=== PATIENT | female | born 1940 | race Caucasian/White ===

== ENCOUNTER 2020-01-07 12:12 | Outpatient (REF) | payer MEDICARE, SELFPAY | END 2020-01-07 12:13 | disposition home or self-care (01) | LOC: HO.LAB 12:12 | PROVIDERS: PCP Internal Medicine; Visit Provider Internal Medicine | DX: Z20.828 Contact with and (suspected) exposure to other viral communicable diseases (principal) | CPT/HCPCS: 87635 ==

== ENCOUNTER 2020-02-17 06:47 | Inpatient (IN) | payer MEDICARE, SELFPAY ==
[2020-02-17] VITALS (10 sets, daily range): BP systolic 118–185; BP diastolic 57–94; PULSE 66–110; RESP 16–18; TEMP 36.3–36.6; O2SAT 94–99; BMI 42.4
--- NOTE | 2020-02-17 06:56 | ED_ITS ---
HPI - General Adult General Chief complaint: Back Pain/Injury Stated complaint: CHEST PAIN Time Seen by Provider: 02/17/20 06:56 Source: patient Mode of arrival: ambulatory Limitations: no limitations History of Present Illness HPI narrative: Patient with positive COVID on January 06, lost taste and smell. Patient had chest and back pain worse with lying. Patient has had pain for 3 days, the pain is intermittent, had heart burn. Patient feels the pain more when she lies down Onset (ago): day(s) Radiation: back Severity: mild Quality: burning Pain Consistency: intermittent Relieving factors: other (sitting up) Related Data Allergies Allergy/AdvReac Type Severity Reaction Status Date / Time cephalexin [From Keflex] AdvReac Mild diarrhea Unverified 02/17/20 07:06 codeine AdvReac Mild gastric Unverified 02/17/20 07:06 distress Review of Systems Constitutional: Constitutional: Reports no additional constitutional complaints Eyes: Eyes: Reports no additional eye complaints ENT: Denies dizziness Cardiovascular: Cardiovascular: Reports no additional cardiovascular complaints Respiratory: Respiratory: Reports as per HPI Gastrointestinal: Gastrointestinal: Reports no additional gastrointestinal complaints Genitourinary: Genitourinary: Reports no additional female genitourinary complaints Musculoskeletal: Musculoskeletal: Reports no additional musculoskeletal complaints Integumentary/Breasts: Skin/Breast: Denies rash Neurologic: Reports system reviewed and no additional complaints, except as documented, Denies dizziness and Denies Sensory deficit (Neuro) Psychiatric: Psychiatric: Denies anxiety PMF Past Medical History Medical History Hypothyroid Melanoma Social History Social History Alcohol intake: never Smoking Status: Former smoker Smoked in Last 30 Days: No Use of substances other than those prescribed or required for medical reasons: No Advance Directives: Yes Advance Directives Information Provided: No Advance Directives on File: No Physical Exam Vital Signs: Vital Signs: Last Vital Signs Temp 97.8 F 02/17/20 06:59 Pulse 110 H 02/17/20 06:59 Resp 18 02/17/20 06:59 BP 185/94 H 02/17/20 06:59 Pulse Ox 98 02/17/20 06:59 Body Mass Index 42.4 Const: Other: no distress Nutritional Appearance: obese Orientation/consciousness: oriented to person and patient oriented x3 Limitations: no limitations HENMT: Head: Yes normal to inspection Ears: external ears normal General nose exam: Normal external nose present Mouth: Normal oral and palatal mucosa present and oropharynx normal Throat: Yes posterior oropharynx normal Eyes: General: appearance normal, both eyes and all related structures Neck: Other: supple Neck: Yes normal visual inspection Chest: Chest palpation & inspection: normal inspection of the chest Resp: Auscultation: clear to auscultation bilaterally Cardio: Other: tachycardia Jugular venous distension: no JVD Rate: regular rate Rhythm: regular rhythm Heart sounds: S1 normal heart sound present and S2 normal heart sound present GI: Inspection: Yes normal to inspection Palpation (GI): Soft to palpation, nontender and No hepatosplenomegaly present Auscultation: normal bowel sounds : General: Yes no CVA tenderness Back/Spine/Pelvis: Back: no CVA tenderness Skin: General skin exam: no rashes or lesions noted Neuro: General: oriented to person and patient oriented x3 Cranial nerves: Yes CN's II-XII intact bilaterally Motor exam (neuro): 5/5 motor strength present throughout Sensory Exam: No Sensory deficit (Neuro) Extrem: General: Yes normal to inspection Psych: Appearance: grossly normal Course Course Course Narrative: patient is pain free Medical Decision Making [facility] Narrative Medical decision making narrative: Patient with intermittent chest discomfort going into the back, gave ASA and nitro, troponin is positive in this patient. Will admit for further cardiac work up Differential Diagnosis Differential Diagnosis: Cardiac, gall bladder, gastritis, pancreatitis Lab Data Result diagrams: 02/17/20 07:34 02/17/20 07:34 Labs: Lab Results 02/17/20 02/17/20 02/17/20 Range/Units 07:34 07:34 07:34 WBC 5.9 (4.8-10.8) X10*3/uL RBC 4.84 (4.20-5.50) X10*6/uL Hgb 13.9 (12.0-16.0) g/dl Hct 42.9 (37-47) % MCV 88.6 (80-98) fL MCH 28.7 (27.0-33.0) pg MCHC 32.4 (31.0-35.0) g/dl RDW 12.8 (11.0-16.0) % Plt Count 272 (160-400) X10*3/uL MPV 9.5 (9.4-12.3) fL Immature Gran % (Auto) 0.2 (0.0-0.4) % Neut % (Auto) 68.7 (45-73) % Lymph % (Auto) 19.3 L (20-40) % [place] % (Auto) 7.7 (2-11) % Eos % (Auto) 3.1 (0-4) % Baso % (Auto) 1.0 (0-2) % Lymph # (Auto) 1.1 L (1.2-4.9) X10*3/uL [place] # (Auto) 0.5 (0.1-1.2) X10*3/uL Eos # (Auto) 0.2 (0.0-0.4) X10*3/uL Baso # (Auto) 0.1 (0.0-0.2) X10*3/uL Abs Immat Gran (auto) 0.01 (0.00-0.03) X10*3/uL Absolute Neuts (auto) 4.0 (2.0-8.3) X10*3/uL Absolute Nucleated RBC 0.000 (0.0-0.012) X10*3/uL Nucleated RBC % (auto) 0.0 (0.0-0.2) /100WBC Sodium 139 (135-145) mmol/L Potassium 4.1 (3.3-5.1) mmol/l Chloride 101 (96-108) mmol/L Carbon Dioxide 28 (22-29) mmol/L Anion Gap 14 (12-20) BUN 9 (9-16) mg/dL Creatinine 0.77 (0.5-1.4) mg/dL Estim Creat Clear Calc 65.2 Estimated GFR > 60 Random Glucose 112 (60-115) mg/dL Calcium 9.6 (8.4-10.2) mg/dL Total Bilirubin 0.3 (0.0-1.0) mg/dL Direct Bilirubin 0.2 (0.0-0.5) mg/dL AST 21 (5-31) U/L ALT 16 (0-31) U/L Alkaline Phosphatase 77 (39-117) U/L Troponin I High Sens 172.7 H (<3.5-17.0) ng/L Total Protein 6.8 (6.5-8.0) g/dL Albumin 4.0 (3.5-5.0) g/dL Lipase 10 (8-78) U/L Critical Care Time Critical Care Time Critical Care Time: Yes Total Critical Care Time: 31 Attestation: I spent 31 minutes of critical care, with interventions, assessments, speaking to patient, consultants, and family. Discharge Plan Discharge Clinical Impression: Chest pain, Elevated troponin Patient Disposition: Admitted As Inpatient
--- NOTE | 2020-02-17 07:06 | ECG_ITS ---
Test Reason : EDMD Blood Pressure : / mmHG Vent. Rate : 080 BPM Atrial Rate : 080 BPM P-R Int : 192 ms QRS Dur : 088 ms QT Int : 380 ms P-R-T Axes : 023 -01 019 degrees QTc Int : 438 ms Normal sinus rhythm Normal ECG When compared with ECG of 08-DEC-2005 10:31, No significant change was found Referred By: Hasmukh Leal Electronically Signed By:ZAIN SONG MD
--- NOTE | 2020-02-17 07:06 | XR_ITS ---
EXAMINATION: XR CHEST CLINICAL INFORMATION: Chest pain. COMPARISON: Chest 09/22/2006 TECHNIQUE: Frontal view of the chest was obtained. FINDINGS: The lungs are expanded with patchy density right middle lobe, question atelectasis/infiltrate. Rest of lungs are expanded and clear. The heart size and pulmonary vascularity is normal. Mild degenerative arthritic changes seen in bilateral AC joints. XR/XR chest 1V IMPRESSION: Patchy density right middle lobe question infiltrate versus atelectasis, new since previous study.
[2020-02-17 07:38] LABS: MANUAL DIFF FLAG NO
[2020-02-17 07:41] LABS: Basophils Absolute Auto 0.1 X10*3/uL (0.0-0.2); Eosinophils Absolute Auto 0.2 X10*3/uL (0.0-0.4); Eosinophils Percent Auto 3.1 % (0-4); Hematocrit 42.9 % (37-47); Hemoglobin 13.9 g/dl (12.0-16.0); Imm Gran Abs Auto 0.01 X10*3/uL (0.00-0.03); Imm Gran Pct Auto 0.2 % (0.0-0.4); Lymphocytes Absolute Auto 1.1 X10*3/uL (1.2-4.9); Lymphocytes Percent Auto 19.3 % (20-40); Mean Corpuscular HGB Conc 32.4 g/dl (31.0-35.0); Mean Corpuscular Hemoglobin 28.7 pg (27.0-33.0); Mean Corpuscular Volume 88.6 fL (80-98); Mean Platelet Volume 9.5 fL (9.4-12.3); Monocytes Absolute Auto 0.5 X10*3/uL (0.1-1.2); Monocytes Percent Auto 7.7 % (2-11); Neutrophils Percent Auto 68.7 % (45-73); Platelet Count 272 X10*3/uL (160-400); Red Blood Count 4.84 X10*6/uL (4.20-5.50); Red Cell Distribution Width 12.8 % (11.0-16.0); White Blood Count 5.9 X10*3/uL (4.8-10.8)
[2020-02-17] MEDS: Magnesium Hydrox/Alum Hydrox 30 ML ORAL.SUSP PO (07:42)
[2020-02-17] MEDS: Pantoprazole Sodium 40 MG/10 ML VIAL IVPUSH (07:42)
[2020-02-17] MEDS: Aspirin 81 MG TAB.CHEW 162 MG PO (07:42)
--- NOTE | 2020-02-17 07:50 | PC.NURSE ---
iv established, blood labs obtained and sent, medicated per emar. pt appears to be sinus tach on tele; 95 bpm. nad, wctm.
[2020-02-17 08:04] LABS: Alanine Aminotransferase 16 U/L (0-31); Alkaline Phosphatase 77 U/L (39-117); Anion Gap 14 (12-20); Aspartate Amino Transferase 21 U/L (5-31); Bilirubin Direct 0.2 mg/dL (0.0-0.5); Bilirubin Total 0.3 mg/dL (0.0-1.0); Blood Urea Nitrogen 9 mg/dL (9-16); Calcium 9.6 mg/dL (8.4-10.2); Carbon Dioxide 28 mmol/L (22-29); Chloride 101 mmol/L (96-108); Creatinine Clr Calc Pharmacy 65.2; Estimated Glomerular Filt Rate > 60; Glucose Random 112 mg/dL (60-115); Lipase 10 U/L (8-78); Potassium 4.1 mmol/l (3.3-5.1); Sodium 139 mmol/L (135-145); Total Protein 6.8 g/dL (6.5-8.0)
[2020-02-17 08:13] LABS: Troponin-I High Sensitivity 172.7 ng/L (<3.5-17.0)
--- NOTE | 2020-02-17 08:21 | PC.NURSE ---
provider at bedside to review lab results, plan for inpt admission
[2020-02-17] MEDS: Nitroglycerin 2 % Oint 1 GM Packet 1 INCH TRANSDERMA (08:44)
--- NOTE | 2020-02-17 08:46 | PC.NURSE ---
medicated per emar, ambulating to bathroom w steady gait.
--- NOTE | 2020-02-17 08:59 | PC.NURSE ---
hospitalist at bedside for eval.
--- NOTE | 2020-02-17 09:49 | P.HPHOSP_ITS ---
History of Present Illness Date of Service: 02/17/20 Chief Complaint: chest pain 79 year female with hypothyroidism, no history of CAD, or diabetes. She comes with 2 to 3 days of intermittent chest pain that is vague in sort of epigastric area towards the side, at worst 8/10, worst lying back and in recliner. She has been taken tums with some relieve, she gets several episodes a day, she came in because of persitence of the pain. Review of Systems Review of Systems: Gen: no fever Resp: no sob, no cough CV: + chest, no GAUTHIER, no leg edema GI: No n/v, no abd pain Neuro: No confusion Yes all other systems are reviewed and are negative Neurologic: Reports Sensory deficit (Neuro) [facility] Medical History (Updated 02/17/20 @ 10:03 by John Chow MD) Hypothyroid Melanoma Functional capacity: independent ambulation Pertinent family history: There is family history of HTN, heart disease but no specific Surgical History (Updated 02/17/20 @ 10:02 by John Chow MD) H/O melanoma excision History of appendectomy Social History Household Members: Spouse Housing: House Do you presently have visiting nurse or other home services: No Alcohol intake: never Smoking Status: Former smoker Smoked in Last 30 Days: No Use of substances other than those prescribed or required for medical reasons: No Currently Displaying Signs/Symptoms of Drug Intoxication Withdrawal: No Have you been hit, kicked, punched, or otherwise hurt by someone within the past year? If so, by whom?: No Do you feel safe in your current relationship?: Yes Is there a partner from a previous relationship who is making you feel unsafe now?: No Advance Directives: Yes Advance Directives Information Provided: No Advance Directives on File: No Advance Directives Date on File: 02/17/20 Do you have thoughts of harming others: None Do you have a plan to hurt others: No Plan Recently lost weight without trying: No service: No Current occupational status: unemployed Meds Allergies Allergy/AdvReac Type Severity Reaction Status Date / Time ciprofloxacin AdvReac Mild Diarrhea Verified 02/17/20 11:40 codeine AdvReac Mild gastric Verified 02/17/20 11:40 distress Home Medications Medication Instructions Recorded Confirmed Type cholecalciferol (vitamin D3) 0 mcg PO DAILY 02/17/20 02/17/20 History [Vitamin D3] levothyroxine 100 mcg PO DAILY@0630 02/17/20 02/17/20 History multivitamin 1 tab PO DAILY 02/17/20 02/17/20 History Physical Exam Vital Signs and Narrative: Vital Signs: Last Vital Signs Temp 97.8 F 02/17/20 06:59 Pulse 86 02/17/20 09:00 Resp 18 02/17/20 06:59 BP 185/94 H 02/17/20 06:59 Pulse Ox 98 02/17/20 06:59 Body Mass Index 42.4 Constitutional Awake and Alert, No apparent distress Neck Supple, No lymphadenopathy Cardiovascular RRR, No M/R/G, S1 S2, No S3 S4, No pedal edema Respiratory Lungs clear, No respiratory distress Gastrointestinal Non tender, Non-distended Skin No rash Neurological Alert & oriented x3 Psychological Appropriate affect Neuro: Sensory Exam: Sensory deficit (Neuro) Results Labs CBC and Chem 7: 02/17/20 07:34 02/17/20 07:34 Labs: Laboratory Results - last 24 hr 02/17/20 02/17/20 02/17/20 07:34 07:34 07:34 MCV 88.6 MCH 28.7 MCHC 32.4 RDW 12.8 Plt Count 272 MPV 9.5 Immature Gran % (Auto) 0.2 Neut % (Auto) 68.7 Lymph % (Auto) 19.3 L [place] % (Auto) 7.7 Eos % (Auto) 3.1 Baso % (Auto) 1.0 Lymph # (Auto) 1.1 L [place] # (Auto) 0.5 Eos # (Auto) 0.2 Baso # (Auto) 0.1 Abs Immat Gran (auto) 0.01 Absolute Neuts (auto) 4.0 Absolute Nucleated RBC 0.000 Nucleated RBC % (auto) 0.0 Anion Gap 14 Estim Creat Clear Calc 65.2 Estimated GFR > 60 Random Glucose 112 Calcium 9.6 Total Bilirubin 0.3 Direct Bilirubin 0.2 AST 21 ALT 16 Alkaline Phosphatase 77 Troponin I High Sens 172.7 H Total Protein 6.8 Albumin 4.0 Lipase 10 Imaging Radiologist's Impressions: Impressions Chest X-Ray 02/17/20 07:06 IMPRESSION: Patchy density right middle lobe question infiltrate versus atelectasis, new since previous study. Assessment and Plan (1) Chest pain: Qualifiers: Chest pain type: precordial pain Qualified Code(s): R07.2 - Precordial pain Status: Acute (2) Elevated troponin: Status: Acute (3) Hypothyroid: Status: Acute (4) HTN (hypertension): Status: Acute 79/F with history of hypothyroidism and likely untreated HTN who presents with chest pain elevated troponin and essentially normal ECG 1. Chest pain, non anginal pattern, normal ECG, however mild rise in trop -Serial troponin an repeat ECG, treat high BP, baby aspirin, check lipids 2. Elevated BP--likely untreated HTN -Start Norvasc 2.5 daily 3. Hypothyroidism--continue Levothyroxine 4.
[2020-02-17 10:00] LABS: COVID-19 Test Negative (Negative)
--- NOTE | 2020-02-17 10:56 | PC.NURSE ---
report given to [facility]ie jara
[2020-02-17] MEDS: Heparin Sodium,Porcine 5,000 UNIT/ML VIAL 5000 UNIT SUBCUT ×2 (12:02→21:07)
[2020-02-17] MEDS: Levothyroxine Sodium 100 MCG TABLET PO (12:03)
--- NOTE | 2020-02-17 12:30 | P.CONCA_ITS ---
History of Present Illness History of Present Illness Date of Consult: February 17, 2020 Requesting physician: Jhon Chow Consult reason: chest pain Chief complaint: Elevated troponin, chest pain Narrative: Pleasant 79-year-old female with background history of hypertension and hypothyroidism who is presenting with off and on chest discomfort ongoing since Monday. She said that she had COVID-19 last month and had some indigestion like feeling at that time too. She said she recovered from that and now over the last 3 days she has been experiencing indigestion like feeling with the epigastric discomfort that radiates to her back whenever lies down. This only happens when she is flat in bed but as she sits up and walks around this discomfort goes away. With walking she has no chest discomfort or abdominal discomfort. With these symptoms she presented to [facility]. Her blood pressure was elevated. Her initial troponin level was 172. she is saying she is feeling fine sitting upright now. Of note also her lipase level was checked which was normal. Review of Systems Review of Systems: Upper abdominal discomfort Yes all other systems are reviewed and are negative ENT: Denies dizziness Neurologic: Reports system reviewed and no additional complaints, except as documented and Denies dizziness PMFSH Past Medical History Medical History (Updated 02/17/20 @ 10:03 by John Chow MD) Hypothyroid Melanoma Functional capacity: independent ambulation Surgical History Surgical History (Updated 02/17/20 @ 10:02 by John Chow MD) H/O melanoma excision History of appendectomy Social History Social History Alcohol intake: never Smoking Status: Former smoker Smoked in Last 30 Days: No Use of substances other than those prescribed or required for medical reasons: No Advance Directives: Yes Advance Directives Information Provided: No Advance Directives on File: No Meds Allergies Allergy/AdvReac Type Severity Reaction Status Date / Time ciprofloxacin AdvReac Mild Diarrhea Verified 02/17/20 11:40 codeine AdvReac Mild gastric Verified 02/17/20 11:40 distress Home Medications Medication Instructions Recorded Confirmed Type cholecalciferol (vitamin D3) 0 mcg PO DAILY 02/17/20 History [Vitamin D3] levothyroxine 100 mcg PO DAILY@0630 02/17/20 02/17/20 History multivitamin 1 tab PO DAILY 02/17/20 02/17/20 History Physical Exam Vital Signs: Vital Signs: Last Vital Signs Temp 97.4 F 02/17/20 11:45 Pulse 90 02/17/20 11:45 Resp 18 02/17/20 11:45 BP 139/78 02/17/20 11:55 Pulse Ox 97 02/17/20 11:45 Body Mass Index 42.4 GENERAL APPEARANCE: in no acute distress, well developed, well nourished. HEENT: unremarkable. HEAD: normocephalic, atraumatic. NECK/THYROID: no carotid bruit, no jugular venous distention. SKIN: no suspicious lesions, warm and dry. HEART: no murmurs, regular rate and rhythm, S1, S2 normal. LUNGS: clear to auscultation bilaterally. ABDOMEN: normal, bowel sounds present, soft, nontender, nondistended. EXTREMITIES: no clubbing, cyanosis, or edema. PERIPHERAL PULSES: equal. NEUROLOGIC: nonfocal, alert and oriented. PSYCH: mood/affect full range. Results Labs and Meds Result diagrams: 02/17/20 07:34 02/17/20 07:34 Lab results: Laboratory Results - last 24 hr 02/17/20 02/17/20 02/17/20 07:34 07:34 07:34 WBC 5.9 RBC 4.84 Hgb 13.9 Hct 42.9 MCV 88.6 MCH 28.7 MCHC 32.4 RDW 12.8 Plt Count 272 MPV 9.5 Immature Gran % (Auto) 0.2 Neut % (Auto) 68.7 Lymph % (Auto) 19.3 L [place] % (Auto) 7.7 Eos % (Auto) 3.1 Baso % (Auto) 1.0 Lymph # (Auto) 1.1 L [place] # (Auto) 0.5 Eos # (Auto) 0.2 Baso # (Auto) 0.1 Abs Immat Gran (auto) 0.01 Absolute Neuts (auto) 4.0 Absolute Nucleated RBC 0.000 Nucleated RBC % (auto) 0.0 Sodium 139 Potassium 4.1 Chloride 101 Carbon Dioxide 28 Anion Gap 14 BUN 9 Creatinine 0.77 Estim Creat Clear Calc 65.2 Estimated GFR > 60 Random Glucose 112 Calcium 9.6 Total Bilirubin 0.3 Direct Bilirubin 0.2 AST 21 ALT 16 Alkaline Phosphatase 77 Troponin I High Sens 172.7 H Total Protein 6.8 Albumin 4.0 Lipase 10 COVID-19 (JACQUIE) COVID-19 Clin Com 02/17/20 09:19 WBC RBC Hgb Hct MCV MCH MCHC RDW Plt Count MPV Immature Gran % (Auto) Neut % (Auto) Lymph % (Auto) [place] % (Auto) Eos % (Auto) Baso % (Auto) Lymph # (Auto) [place] # (Auto) Eos # (Auto) Baso # (Auto) Abs Immat Gran (auto) Absolute Neuts (auto) Absolute Nucleated RBC Nucleated RBC % (auto) Sodium Potassium Chloride Carbon Dioxide Anion Gap BUN Creatinine Estim Creat Clear Calc Estimated GFR Random Glucose Calcium Total Bilirubin Direct Bilirubin AST ALT Alkaline Phosphatase Troponin I High Sens Total Protein Albumin Lipase COVID-19 (JACQUIE) Negative COVID-19 Clin Com See Note EKG Interpretation EKG Comments: Normal sinus rhythm Normal ECG When compared with ECG of 08-DEC-2005 10:31, No significant change was found Assessment and Plan (1) HTN (hypertension): Status: Acute (2) Chest pain: Qualifiers: Chest pain type: precordial pain Qualified Code(s): R07.2 - Precordial pain Status: Acute (3) Elevated troponin: Status: Acute pleasant 79-year-old female with background history of hypertension and hypothyroidism who is presenting with epigastric discomfort radiating to her back and mildly abnormal troponin level. She has hypertension and blood pressure is elevated. Her story is quite atypical and her discomfort gets worse when she tries to lie down and improved that she sits up sent walks around. She recently had COVID-19. EKG is normal and she does not have any ischemic changes or changes of pericarditis. Her lipase level is also normal so unlikely at this is pancreatitis. She was given nitroglycerin patch. That can be discontinued. Please start her on amlodipine 5 mg once a day. I will check echocardiogram.Please check another set of troponins on her. If her troponin trend is flat and ECHO does not show any wall motion abnormalities then she can be discharged home if BP stable. I really doubt this is ACS. Also unlikely to be pericarditis. We will look for any pericardial effusion on the echocardiogram to confirm that. Thank you for allowing me to participate in the care of your patient. Please feel free to contact me if you have any questions. Procedures Abscess I/D Date of Service: 02/17/20
[2020-02-17 12:53] LABS: Troponin-I High Sensitivity 187.5 ng/L (<3.5-17.0)
[2020-02-17] MEDS: amLODIPine Besylate 2.5 MG TABLET PO (14:16)
[2020-02-17] MEDS: 0.9 % Sodium Chloride Flush 3 ML SYRINGE IVFLUSH ×2 (17:06→21:07)
[2020-02-17] MEDS: oxyCODONE HCl Immed Release 5 MG TABLET PO (21:35)
[2020-02-18 03:15] VITALS: BP 113/60; PULSE 76; RESP 18; TEMP 36.6; O2SAT 97
[2020-02-18] MEDS: Levothyroxine Sodium 100 MCG TABLET PO (06:26)
[2020-02-18 07:37] VITALS: BP 160/82; PULSE 84; RESP 18; TEMP 36.4; O2SAT 96
[2020-02-18] MEDS: 0.9 % Sodium Chloride Flush 3 ML SYRINGE IVFLUSH (08:00)
--- NOTE | 2020-02-18 08:51 | MHC.CM.PN ---
CM met with Patient. Patient lives in a house with her and she is functionally independent. Patient's goal is to return home, no services and CM has initiated and will follow for dc planning. IMM addressed with Patient and the original has been given to her and a copy has been placed on the chart. PCP is Dr. Eddie Fernando and Patient's Son/Chan is her HCP.
--- NOTE | 2020-02-18 09:13 | PM.PNCARD ---
Subjective Subjective Principal diagnosis: Atypical chest discomfort, Mild troponin elevation, elevated BP Interval history: Cardiology follow up for chest discomfort. Feeling well today. No recurrent CP or epigastric discomfort. Does have a tenderness to palpation and movement of right mid back. No sob. BP is elevated at 160/82 this am. Hoping to go home today. Review of Systems Review of Systems Yes all other systems are reviewed and are negative Constitutional: Denies frequent falls Denies dizziness Cardiovascular: Denies chest pain, Denies chest pain at rest, Denies chest pain with activity, Denies Epigastric Pain, Denies syncope, Denies claudication, Denies lightheadedness, Denies radiating jaw, neck or arm pain, Denies palpitations, Denies dyspnea on exertion and Denies orthopnea Respiratory: Denies chest congestion, Denies cough, Denies hemoptysis, Denies pain on inspiration and Denies dyspnea on exertion Gastrointestinal: Reports no additional gastrointestinal complaints and Denies abdominal pain Musculoskeletal: Reports no additional musculoskeletal complaints Comments: Tenderness to mid back with palp and movement Reports system reviewed and no additional complaints, except as documented, Denies confusion, Denies dizziness, Denies syncope, Denies frequent falls and Reports Sensory deficit (Neuro) Psychiatric: Denies confusion Endocrine: Denies palpitations Physical Exam Vital Signs: Last Vital Signs Temp 97.6 F 02/18/20 07:37 Pulse 84 02/18/20 07:37 Resp 18 02/18/20 07:37 BP 160/82 H 02/18/20 07:37 Pulse Ox 96 02/18/20 07:37 Body Mass Index 42.4 Const General: No confusion Orientation/consciousness: No confusion [facility] Head: Yes normal to inspection Eyes Conjunctivae: conjunctivae normal Neck Neck: Yes normal visual inspection and Yes no JVD Carotids: carotid upstroke abnormal Resp Effort & Inspection: normal respiratory effort, able to speak in complete sentences and not labored Auscultation: clear to auscultation bilaterally, no crackles, no rales, no rhonchi and no wheezes Cardio Palpation: normal PMI Rate: regular rate Rhythm: regular rhythm Heart sounds: S1 normal heart sound present and S2 normal heart sound present GI Inspection: Yes normal to inspection Skin General skin exam: no rashes or lesions noted Neuro General: No confusion Sensory Exam: Sensory deficit (Neuro) Extrem General: Yes normal to inspection and No edema Results Labs and Meds Result diagrams: 02/17/20 07:34 02/17/20 07:34 Lab results: Laboratory Results - last 24 hr 02/17/20 02/17/20 09:19 11:32 Troponin I High Sens 187.5 H COVID-19 (JACQUIE) Negative COVID-19 Clin Com See Note Progress Note: A&P Assessment and plan (1) Chest pain: Status: Acute Assessment and Plan: Admit with CP. Mildly elevated troponin. EKG nonischemic. Her discomfort was atypical for angina. Differentials GI related, possible pericarditis. Has no chest or epigastric pain today. Tele stable SR. Echo pending today. If echo shows no significant abnormalities, then patient can be discharged from cardiology perspective. (2) Elevated troponin: Status: Acute (3) HTN (hypertension): Status: Acute Assessment and Plan: BP elevated this admit. She reports has been borderline high at home. Will start Amlodipine 5 mg daily for BP control. Fall Risk Details Current Medications: Current Medications Generic Name Dose Route Start Last Admin Trade Name Freq PRN Reason Stop Dose Admin Heparin Sodium (Porcine) 5,000 unit 02/17/20 11:06 02/17/20 21:07 Heparin Sodium,Porcine 5,000 Unit/Ml Vial SUBCUT 5,000 unit Q12H FRIDA Administration Levothyroxine Sodium 100 mcg 02/17/20 11:06 02/18/20 06:26 Levothyroxine Sodium 100 Mcg Tablet PO 100 mcg DAILY@0630 [facility] Administration Pharmacy Consult 1 each 02/17/20 08:46 Consult Rx Perform Med Rec MISCELLANE ONCE PRN Consult order Sodium Chloride 3 ml 02/17/20 16:00 02/18/20 08:00 0.9 % Sodium Chloride Flush 3 Ml Syringe IVFLUSH 3 ml QSHIFT FRIDA Administration Time Spent With Patient Time: Total time spent is greater than 50% in coordination of care (as documented) at patient's floor/unit and/or counseling patient: Time with patient: 15 - 24 minutes Procedures Abscess I/D Date of Service: 02/18/20
--- NOTE | 2020-02-18 09:52 | PM.DS ---
DS: Providers Provider Date of admission: 02/17/20 09:46 Primary care physician: Eddie Fernando MD Consults: 02/17/20 09:47 Consult to Cardiology Routine Consulting Provider: Ishaan Das Reason for consultation: chest pain, elevated troponin Has provider been notified: No DS: Diagnosis Discharge Diagnosis (1) Chest pain: Status: Acute (2) Elevated troponin: Status: Acute (3) Hypothyroid: Status: Acute (4) HTN (hypertension): Status: Acute DS: Medications Discharge Medications Home Medications: Home Medications Medication Instructions Recorded Confirmed cholecalciferol (vitamin D3) 0 mcg PO DAILY 02/17/20 02/17/20 [Vitamin D3] levothyroxine 100 mcg PO DAILY@0630 02/17/20 02/17/20 multivitamin 1 tab PO DAILY 02/17/20 02/17/20 DS: Summary Hospital Course Hospital Course: 79 year female with hypothyroidism, no history of CAD, or diabetes. She comes with 2 to 3 days of intermittent chest pain that is vague in sort of epigastric area towards the side, at worst 8/10, worst lying back and in recliner. She has been taken tums with some relieve, she gets several episodes a day, she came in because of persitence of the pain. Hospital course: She was admitted overnight. Her chest pain has resolved. Her troponin I went from 172 to 187, ECG showed no acute ischemic changes. Echo shows trace posterior pericardial effusion raising concern for pericarditis. Cardiology recommend pericarditis with Colchicine. And started on Norvasc 5 mg daily for HTN. Her blood pressure has been fairly high and will be started on Norvasc 5 mg daily and she might need additional med adjustement by PCP. At this juncture, she has no chest pain and is comfortable going home. Time Spent with Patient Time attestation: Total time spent providing and/or coordinating discharge services: Physical Exam Vital Signs: Vital Signs: Last Vital Signs Temp 97.6 F 02/18/20 07:37 Pulse 84 02/18/20 07:37 Resp 18 02/18/20 07:37 BP 160/82 H 02/18/20 07:37 Pulse Ox 96 02/18/20 07:37 Body Mass Index 42.4 General: AO X 3, no acute distress Resp: CTA bilateral CVS: S1,S2,RRR GI: +BS, NT, no distention Skin: No rash Neuro: motor grossly intact Psych: appropriate affect DS: Data Data Completed and Pending Labs on day of discharge: 02/17/20 07:06 ECG 12 lead EKG Stat EKG Documentation DIRECTED XR chest 1V Stat Pantoprazole Sodium [Protonix] 40 mg IVPUSH ONCE ONE 02/17/20 07:09 Aspirin 162 mg PO ONCE ONE Magnesium Hydrox/Alum Hydrox [Maalox] 30 ml PO ONCE ONE 02/17/20 07:34 Basic Metabolic Panel Stat Complete Blood Count Auto Diff Stat Lipase Stat Liver Panel Stat Troponin-I High Sensitivity Stat 02/17/20 08:15 Nitroglycerin 2 % Oint [Nitro-Bid] 1 inch TRANSDERMA ONCE ONE 02/17/20 09:19 COVID-19 ID NOW ([place]) Stat 02/17/20 09:31 Transfer Order Routine 02/17/20 11:32 Troponin-I High Sensitivity Stat 02/17/20 13:04 amLODIPine Besylate [Norvasc] 2.5 mg PO ONCE ONE 02/17/20 21:19 oxyCODONE HCl Immed Release [Roxicodone] 5 mg PO ONCE ONE Laboratory Last Values WBC 5.9 X10*3/uL (4.8-10.8) 02/17/20 07:34 RBC 4.84 X10*6/uL (4.20-5.50) 02/17/20 07:34 Hgb 13.9 g/dl (12.0-16.0) 02/17/20 07:34 Hct 42.9 % (37-47) 02/17/20 07:34 MCV 88.6 fL (80-98) 02/17/20 07:34 MCH 28.7 pg (27.0-33.0) 02/17/20 07:34 MCHC 32.4 g/dl (31.0-35.0) 02/17/20 07:34 RDW 12.8 % (11.0-16.0) 02/17/20 07:34 Plt Count 272 X10*3/uL (160-400) 02/17/20 07:34 MPV 9.5 fL (9.4-12.3) 02/17/20 07:34 Immature Gran % (Auto) 0.2 % (0.0-0.4) 02/17/20 07:34 Neut % (Auto) 68.7 % (45-73) 02/17/20 07:34 Lymph % (Auto) 19.3 % (20-40) L 02/17/20 07:34 [place] % (Auto) 7.7 % (2-11) 02/17/20 07:34 Eos % (Auto) 3.1 % (0-4) 02/17/20 07:34 Baso % (Auto) 1.0 % (0-2) 02/17/20 07:34 Lymph # (Auto) 1.1 X10*3/uL (1.2-4.9) L 02/17/20 07:34 [place] # (Auto) 0.5 X10*3/uL (0.1-1.2) 02/17/20 07:34 Eos # (Auto) 0.2 X10*3/uL (0.0-0.4) 02/17/20 07:34 Baso # (Auto) 0.1 X10*3/uL (0.0-0.2) 02/17/20 07:34 Abs Immat Gran (auto) 0.01 X10*3/uL (0.00-0.03) 02/17/20 07:34 Absolute Neuts (auto) 4.0 X10*3/uL (2.0-8.3) 02/17/20 07:34 Absolute Nucleated RBC 0.000 X10*3/uL (0.0-0.012) 02/17/20 07:34 Nucleated RBC % (auto) 0.0 /100WBC (0.0-0.2) 02/17/20 07:34 Sodium 139 mmol/L (135-145) 02/17/20 07:34 Potassium 4.1 mmol/l (3.3-5.1) 02/17/20 07:34 Chloride 101 mmol/L (96-108) 02/17/20 07:34 Carbon Dioxide 28 mmol/L (22-29) 02/17/20 07:34 Anion Gap 14 (12-20) 02/17/20 07:34 BUN 9 mg/dL (9-16) 02/17/20 07:34 Creatinine 0.77 mg/dL (0.5-1.4) 02/17/20 07:34 Estim Creat Clear Calc 65.2 02/17/20 07:34 Estimated GFR > 60 02/17/20 07:34 Random Glucose 112 mg/dL (60-115) 02/17/20 07:34 Calcium 9.6 mg/dL (8.4-10.2) 02/17/20 07:34 Total Bilirubin 0.3 mg/dL (0.0-1.0) 02/17/20 07:34 Direct Bilirubin 0.2 mg/dL (0.0-0.5) 02/17/20 07:34 AST 21 U/L (5-31) 02/17/20 07:34 ALT 16 U/L (0-31) 02/17/20 07:34 Alkaline Phosphatase 77 U/L (39-117) 02/17/20 07:34 Troponin I High Sens 187.5 ng/L (<3.5-17.0) H 02/17/20 11:32 Total Protein 6.8 g/dL (6.5-8.0) 02/17/20 07:34 Albumin 4.0 g/dL (3.5-5.0) 02/17/20 07:34 Lipase 10 U/L (8-78) 02/17/20 07:34 COVID-19 (JACQUIE) Negative (Negative) 02/17/20 09:19 COVID-19 Clin Com See Note 02/17/20 09:19 Discharge Plan Discharge Anticipated Discharge Date/Time: 02/18/20 09:56 Patient Disposition: Home, Self-Care Referrals: Eddie Fernando MD [Primary Care Provider] - Discharge Medications: New omeprazole magnesium [Prilosec OTC] 20 mg tablet,delayed release (DR/EC) 20 mg PO DAILY Qty: 30 RF: 0 colchicine 0.6 mg capsule 0.6 mg PO DAILY Qty: 60 RF: 0 amlodipine 5 mg Tablet 5 mg PO DAILY Qty: 30 RF: 0 Continued cholecalciferol (vitamin D3) [Vitamin D3] 25 mcg (1,000 unit) Capsule 0 mcg PO DAILY RF: 0 levothyroxine 100 mcg Capsule 100 mcg PO DAILY@0630 RF: 0 multivitamin Tablet 1 tab PO DAILY RF: 0 Discharge Orders: Discharge Order (Routine); Ordered 02/18/20 Ordered By: John Mlapah Activity on Discharge: As tolerated Discharge Date/Time: 02/18/20 16:45 Visit Report Forms: Patient Portal Discharge page Care Plan Goals: Controlling blood pressure Health Concerns: High blood pressure Plan of Treatment: Take Norvasc for blood pressure, follow up with Dr. Fernando and have blood pressure recheck and additional changes be made as necessary Take Colchicine to treat pericarditis and follow up with Dr. Das
[2020-02-18] MEDS: Heparin Sodium,Porcine 5,000 UNIT/ML VIAL 5000 UNIT SUBCUT (09:57)
[2020-02-18 09:59] VITALS: BP 136/63; PULSE 80
[2020-02-18] MEDS: amLODIPine Besylate 5 MG TABLET PO (09:59)
[2020-02-18 11:23] VITALS: BMI 42.4
--- NOTE | 2020-02-18 11:39 | MHC.CM.PN ---
Per ROUNDS discussion, Patient is likely to be medically cleared for dc to home today, no services. IMM addressed this morning.
[2020-02-18 11:54] VITALS: BP 137/64; PULSE 78; RESP 18; TEMP 36.4; O2SAT 95
[2020-02-18 12:33] LABS: Cholesterol 228 mg/dL; HDL Cholesterol 58 mg/dL; LDL Cholesterol Calculated 146 mg/dl; Triglycerides 121 mg/dL
[2020-02-18 15:16] VITALS: BP 159/74; PULSE 87; RESP 18; TEMP 36.5; O2SAT 95
--- NOTE | 2020-02-18 16:00 | CA_ITS ---
Transthoracic Echocardiogram Patient (Last, First, Middle): Mónica Clayton A Gender: Female Date of : 1940 Age: 79 Procedure Date: 02/18/2020 Procedure Type: Transthoracic Echocardiogram [place] [facility] [place] Height: 157.48 cm Weight: 105.24 kg BSA: 2.04 m2 Heart Rate: bpm BP: 172 / 73 mmHg Director Of Corporate Communications: SOWMYA Referring MD: John Chow MD Symptoms: chest pain Conclusions: - Normal left ventricular size and systolic function. - There is a trace posterior pericardial effusion. No tamponade physiology present. Findings Left Ventricle Normal left ventricular size and systolic function. There is mildly increased left ventricular wall thickness. The visually estimated ejection fraction is between 60-65%. There is no evidence of regional wall motion abnormalities. Abnormal diastolic function is noted. Spectral Doppler is indicative of an impaired relaxation filling pattern. E/E prime ratio is between 8 and 15 consistent with indeterminate filling pressures. Right Ventricle Normal right ventricular cavity size and systolic function. Atria The left atrium is normal in size. Aortic Valve There is a normal trileaflet aortic valve. There is mild calcification of the aortic valve. There is moderate thickening of the aortic valve. There is no aortic valve stenosis. There is no aortic valve regurgitation. Mitral Valve Normal mitral valve structure and function. There is no mitral valve regurgitation. There is no mitral valve stenosis. Pulmonic Valve The pulmonic valve is likely normal. Tricuspid Valve Normal tricuspid valve structure and function. There is no tricuspid valve regurgitation. Normal right atrial pressure. There is no evidence of pulmonary hypertension. Great Vessels All visible segments of the aorta are normal in size. The visualized portions of the pulmonary artery and branches are normal. Venous The inferior vena cava is normal in size and collapses greater than 50% with inspiration. Pericardium/Pleural There is a trace posterior pericardial effusion. No tamponade physiology present. Prior Study Comparison No prior study available for comparison. Measurements 2D Linear Measurements RVIDd: 3.08 RVIDd Index: 1.51 IVSd: 1.18 0.6-0.9/0.6-1.0 cm LVIDd: 4.55 3.9-5.3/4.2-5.9 cm LVIDd Index: 2.23 2.4-3.2/2.2-3.1 cm/m2 LVIDs: 3.23 2.0-3.6 cm LVPWd: 1.19 0.7-1.1 cm Ao Root: 3.20 2.1-3.5 cm LA Diam: 4.40 2.7-3.8/3.0-4.0 cm LAIDs Index: 2.16 1.5-2.3 cm/m2 LV Mass: 246.66 67-162/88-224 g LV Mass Index: 120.91 43-95/49-115 g/m2 LVOT Diam: 2.00 3.0+(-)1.3 cm 2D Systolic Function EF 4C: 54.10 >55% EF 2C: 67.40 >55% EF BiP: 61.60 >55% Mitral Valve MV Pk E: 0.64 MV PK A: 0.61 MV Decel Time: 155.00 E/A: 1.00 E'Lateral: 5.77 E'Medial: 7.29 E/E' Med: 8.70 E/E' Lat: 11.00 Aortic Valve AoV Pk Livan: 1.71 AoV Mn Livan: 1.16 AoV VTI: 0.34 AoV Pk Grad: 12.00 Aov Mn Grad: 6.00 ALDO Cont.VTI: 1.81 LVOT LVOT Pk Livan: 1.01 LVOT Mn Livan: 0.69 LVOT VTI: 0.20 LVOT Pk Grad: 4.00 LVOT Mn Grad: 2.00 LVOT Diam: 2.00 LVOT Area: 3.14 Diastolic Function MV Pk E: 0.64 MV Pk A: 0.61 E/A: 1.00 E'Medial: 7.29 E/E' Med: 8.70 E' Laterial: 5.77 E/E' Lat: 11.00 Tricuspid Valve RA Press: 3.00 RVSP: 22.00 Great Vessels Aorta Ao Root-2D: 3.20 2.0-3.7 cm Ao Asc: 3.40 2.1-3.4 cm Ao Arch: 2.90 Updated in Other Vendor System with Status of Final Ishaan Das MD electronically signed on 02/18/2020 2:41:03 PM with status of Final
== END 2020-02-18 16:45 | disposition home or self-care (01) | DRG 313 ==
LOC: HO.ED 08:29 → HO.IMC 10:31
PROVIDERS: Admitting Provider Internal Medicine; Emergency Provider Emergency Medicine; PCP Internal Medicine; Visit Provider Internal Medicine
DX: R07.2 Precordial pain (principal); R79.89 Other specified abnormal findings of blood chemistry; E03.9 Hypothyroidism, unspecified; I10 Essential (primary) hypertension; Z86.19 Personal history of other infectious and parasitic diseases; Z20.828 Contact with and (suspected) exposure to other viral communicable diseases; Z87.891 Personal history of nicotine dependence; Z88.5 Allergy status to narcotic agent; Z79.890 Hormone replacement therapy; Z79.899 Other long term (current) drug therapy
CPT/HCPCS: 36415; 71045; 80048; 80061; 80076; 83690; 84484; 85025; 87635; 93005; 93306; 96374; 99285; 99291

== ENCOUNTER 2020-03-11 08:15 | Outpatient (REF) | payer MEDICARE, SELFPAY ==
--- NOTE | 2020-03-11 | US_ITS ---
EXAMINATION: US ABDOMEN COMPLETE CLINICAL INFORMATION: Abdominal pain. COMPARISON: None. TECHNIQUE: Real-time imaging of the abdominal viscera. FINDINGS: PANCREAS: Normal. ABDOMINAL AORTA: The proximal, mid, and distal segments are normal in caliber. INFERIOR VENA CAVA: Visualized portions are normal. LIVER: The liver is normal in size. The liver contour is normal. Parenchymal echogenicity is normal. There is anechoic cyst with echogenic septation left lobe measuring 2.2 x 1.5 x 2.0 cm. There is a simple cyst right hepatic lobe measuring 1.6 x 1.2 x 1.5 cm. There is no intrahepatic biliary duct dilatation seen. GALLBLADDER: Normal. The gallbladder is physiologically distended without evidence of stones, sludge, polyps, wall thickening or pericholecystic fluid. COMMON BILE DUCT: Normal in caliber measuring 0.4 cm in diameter. RIGHT KIDNEY: No hydronephrosis. No renal calculi or focal parenchymal lesions. The kidney measures 10.1 cm in maximum dimension. There is mild pelvic fullness. LEFT KIDNEY: No hydronephrosis. No renal calculi or focal parenchymal lesions. The kidney measures 12.6 cm in maximum dimension. There is mild pelvic fullness SPLEEN: Normal. The spleen measures 10.0 cm in maximum dimension. FREE FLUID: None. US/US abdomen complete IMPRESSION: There is bilateral mild pelvic fullness. Simple cyst right hepatic lobe and a complex cyst left hepatic lobe. The rest of the ultrasound abdomen is unremarkable.
== END 2020-03-11 08:16 | disposition home or self-care (01) ==
LOC: HO.HMGCX 08:15
PROVIDERS: PCP Internal Medicine; Visit Provider Internal Medicine
DX: R10.11 Right upper quadrant pain (principal)
CPT/HCPCS: 76700

== ENCOUNTER 2020-06-24 12:40 | Outpatient (REF) | payer MEDICARE, SELFPAY ==
--- NOTE | ~2020-06-24 | MM_ITS ---
EXAMINATION: MM SCREENING DIGITAL BREAST TOMOSYNTHESIS, BILATERAL CLINICAL INFORMATION: Screening. Asymptomatic. The lifetime risk of breast cancer based on the Tyrer-Cuzick Model is 2.2%. COMPARISON: Mammography: February 18, 2019 and studies dating back to December 22, 2011 TECHNIQUE: Digital breast tomosynthesis is performed in both the craniocaudal and mediolateral oblique views along with computer-aided detection (CAD). Synthesized 2D images are generated from the tomosynthesis. FINDINGS: There are scattered areas of fibroglandular density (ACR BI-RADS breast composition Category b). There are no significant masses, abnormal calcifications, or other abnormalities. MM/MM tomosynthesis screening BI IMPRESSION: There are no significant changes from prior study. ASSESSMENT: BI-RADS 1: Negative RECOMMENDATION: Routine annual mammography screening. This patient's information was entered into a reminder system with a target due date for their next mammogram.
== END 2020-06-24 12:41 | disposition home or self-care (01) ==
LOC: HO.MAMMO 12:40
PROVIDERS: Visit Provider Internal Medicine
DX: Z12.31 Encounter for screening mammogram for malignant neoplasm of breast (principal)
CPT/HCPCS: 77063; 77067

== ENCOUNTER 2020-08-31 06:49 | Outpatient (REF) | payer MEDICARE, SELFPAY ==
--- NOTE | ~2020-08-31 | US_ITS ---
EXAMINATION: US ABDOMEN LIMITED CLINICAL INFORMATION: Hepatic cyst. COMPARISON: Ultrasound abdomen complete dated 03/11/2020. TECHNIQUE: Real-time imaging of the right upper quadrant abdominal viscera. FINDINGS: PANCREAS: Head and body the pancreas are normal. The tail is not visualized due to bowel gas. LIVER: There are 2 complex multiloculated cysts measuring 1.3 x 1.1 x 1.5 cm in the right lobe and 2 x 1.4 x 2 cm in the left lobe. These do not appear appreciably changed. The liver is normal in size. The liver contour is normal. Liver echotexture is increased. There is no intrahepatic biliary duct dilatation seen. GALLBLADDER: Normal. The gallbladder is physiologically distended without evidence of stones, sludge, polyps, wall thickening or pericholecystic fluid. COMMON BILE DUCT: Normal in caliber measuring 0.46 cm in diameter. RIGHT KIDNEY: Normal. No hydronephrosis. No renal calculi or focal parenchymal lesions. The kidney measures 10.4 cm in maximum dimension. FREE FLUID: None. US/US abdomen limited IMPRESSION: Slightly echogenic liver. Stable complex liver cysts from February 2020 exam.
== END 2020-08-31 06:50 | disposition home or self-care (01) ==
LOC: HO.US 06:49
PROVIDERS: Visit Provider Internal Medicine
DX: K76.89 Other specified diseases of liver (principal)
CPT/HCPCS: 76705

== ENCOUNTER 2020-11-13 11:24 | Emergency (ER) | payer MEDICARE, SELFPAY ==
--- NOTE | ~2020-11-13 | US_ITS ---
EXAMINATION: US VENOUS ULTRASOUND WITH DOPPLER LOWER EXTREMITY, RIGHT CLINICAL INFORMATION: Swelling rule out DVT COMPARISON: None TECHNIQUE: Ultrasound of the deep veins is performed from the hip to the calf with compression sonography and color and pulse Doppler assessment. Spectral analysis with color-flow imaging is performed. FINDINGS: There is normal venous compression and respiratory variation and augmented flow. The visualized common femoral vein, superficial femoral vein, profunda femoral vein, popliteal vein, and the trifurcation region shows no evidence of deep venous thrombosis. There is a 5.2 x 1.3 cm popliteal fossa Green's cyst. There are multiple enlarged superficial veins in the right mid calf. US/US venous duplex LE RT IMPRESSION: No DVT demonstrated in the right lower extremity. Multiple enlarged superficial veins in the right mid calf due to superficial thrombophlebitis. 5.2 cm Green's cyst.
[2020-11-13 11:46] VITALS: BP 146/68; PULSE 90; RESP 19; TEMP 36.7; O2SAT 96; BMI 42.0
[2020-11-13 12:29] LABS: MANUAL DIFF FLAG NO
[2020-11-13 12:31] LABS: Basophils Absolute Auto 0.1 X10*3/uL (0.0-0.2); Basophils Percent Auto 0.8 % (0-2); Eosinophils Absolute Auto 0.2 X10*3/uL (0.0-0.4); Eosinophils Percent Auto 3.5 % (0-4); Hematocrit 41.6 % (37-47); Hemoglobin 13.7 g/dl (12.0-16.0); Imm Gran Abs Auto 0.01 X10*3/uL (0.00-0.03); Imm Gran Pct Auto 0.2 % (0.0-0.4); Lymphocytes Absolute Auto 1.2 X10*3/uL (1.2-4.9); Mean Corpuscular HGB Conc 32.9 g/dl (31.0-35.0); Mean Corpuscular Hemoglobin 29.3 pg (27.0-33.0); Mean Corpuscular Volume 88.9 fL (80-98); Mean Platelet Volume 9.7 fL (9.4-12.3); Monocytes Absolute Auto 0.5 X10*3/uL (0.1-1.2); Monocytes Percent Auto 8.9 % (2-11); Neutrophils Percent Auto 66.6 % (45-73); Platelet Count 251 X10*3/uL (160-400); Red Blood Count 4.68 X10*6/uL (4.20-5.50); Red Cell Distribution Width 12.8 % (11.0-16.0)
[2020-11-13 12:45] LABS: D Dimer 399 NG/ML
[2020-11-13 13:02] LABS: Anion Gap 14 (12-20); Blood Urea Nitrogen 8 mg/dL (9-16); Calcium 9.2 mg/dL (8.4-10.2); Carbon Dioxide 26 mmol/L (22-29); Chloride 105 mmol/L (96-108); Creatinine Clr Calc Pharmacy 62.9; Estimated Glomerular Filt Rate > 60; Glucose Random 99 mg/dL (60-115); Potassium 4.4 mmol/L (3.3-5.1); Sodium 141 mmol/L (135-145)
[2020-11-13 15:28] VITALS: BP 173/64; PULSE 93; RESP 16; O2SAT 98
--- NOTE | 2020-11-13 17:20 | ED_ITS ---
HPI - Extremity Problem General Chief complaint: Extremity Problem Stated complaint: rt leg pain Time Seen by Provider: 11/13/20 17:19 Source: patient Mode of arrival: ambulatory Limitations: no limitations History of Present Illness HPI Narrative: 80 years old female came in for evaluation of a right lower extremities pain for the past 2 days. Patient declined any fever or chills, patient is known to have varicose veins in the past patient also had history of DVT in the past. Related Data Home Medications Medication Instructions Recorded Confirmed cholecalciferol (vitamin D3) 25 0 mcg PO DAILY 02/17/20 02/17/20 mcg (1,000 unit) capsule (Vitamin D3) levothyroxine 100 mcg capsule 100 mcg PO DAILY@0630 02/17/20 02/17/20 multivitamin 1 tab PO DAILY 02/17/20 02/17/20 Previous Rx's Medication Instructions Recorded amlodipine 5 mg tablet 5 mg PO DAILY #30 tab 02/18/20 colchicine 0.6 mg capsule 0.6 mg PO DAILY #60 cap 02/18/20 omeprazole magnesium 20 mg 20 mg PO DAILY #30 tab 02/18/20 tablet,delayed release (Prilosec OTC) doxycycline hyclate 100 mg tablet 100 mg PO BID #14 tab 11/13/20 Allergies Allergy/AdvReac Type Severity Reaction Status Date / Time ciprofloxacin AdvReac Mild Diarrhea Verified 02/17/20 11:40 codeine AdvReac Mild gastric Verified 02/17/20 11:40 distress Review of Systems Review of Systems: All other systems are reviewed and are negative Constitutional: Reports as per HPI and Reports no additional constitutional complaints Eyes: Reports as per HPI and Reports no additional eye complaints Reports system reviewed and no additional complaints, except as documented Cardiovascular: Reports as per HPI and Reports no additional cardiovascular complaints Respiratory: Reports as per HPI and Reports no additional respiratory complaints Gastrointestinal: Reports as per HPI and Reports no additional gastrointestinal complaints Genitourinary: Reports no additional female genitourinary complaints Musculoskeletal: Reports no additional musculoskeletal complaints Skin/Breast: Reports system reviewed and no additional complaints, except as docu Psychiatric: Reports no additional psychiatric complaints Endocrine: Reports no additional endocrine complaints Hematologic/Lymphatic: Reports no additional hematologic/lymphatic complaints Allergic/Immunologic: Reports no additional allergic/immunologic complaints Reports system reviewed and no additional complaints, except as documented and Reports Abnormal speech present FORMERLY [facility], [facility] Past Medical History Medical History Elevated troponin HTN (hypertension) Hypothyroid Melanoma Surgical History H/O melanoma excision History of appendectomy Social History Social History Household Members: Spouse Housing: House Do you presently have visiting nurse or other home services: No Alcohol intake: never Advance Directives: Yes Advance Directives on File: Yes Advance Directives Date on File: 02/17/20 service: No Current occupational status: unemployed Physical Exam Vital Signs: Vital Signs: Last Vital Signs Temp 98.1 F 11/13/20 11:46 Pulse 84 11/13/20 18:21 Resp 16 11/13/20 18:21 BP 147/69 H 11/13/20 18:21 Pulse Ox 99 11/13/20 18:21 Body Mass Index 42.0 Vital signs have been reviewed as appeared to be correct. Blood pressure normal. Heart rate normal. Respiration rate normal. Temperature normal. Oxygen saturation normal. Appearance: Alert. Oriented X3. No acute distress. Head: Normal external exam. Normocephalic. Atraumatic. No Kumari signs noted. No raccoon eyes noted Eyes: PERRLA. EOMI. Conjunctiva and sclera normal. Eyelids normal. ENT: TM's Normal. Pharynx normal. Uvula midline. Moist mucous membranes. No trismus noted. No drooling noted. No muffled voice noted. Neck: Normal inspection. Neck supple. FROM. No adenopathy. Thyroid Normal. No meningeal signs. No neck mass noted. CVS: Normal heart rate and rhythm. Heart sound normal. No murmurs noted. Pulses normal throughout. Respiratory: No respiratory distress. Painless inspiration. Breath sounds normal. No wheezes/rales/rhonchi noted. Chest nontender. No accessory muscle usage noted or decreased air movement noted. Abdomen: Soft and nontender. Bowel sounds normal in all 4 quadrants. No distention noted. No organomegaly noted. No visible injury noted. Back: No CVA tenderness. Full range of motion noted. Skin: Skin warm and dry. Normal skin color. Normal skin turgor. No rashes/lesions/lacerations noted. Extremities: Varicose vein in the right calf, 3 x 5 cm area of redness and hotness and tenderness on the thomas of her right leg. Neuro: Oriented X 3. Cranial nerve exam: II-XII are grossly intact No motor deficit. No sensory deficit. Reflexes normal. Course Course Course Narrative: Assessment and plan. Right lower leg cellulitis. No DVT. No meeting criteria of SIRS. MDM - Extremity (Nontraumatic) Lab Data Attestation: I reviewed the patient's lab results. Result diagrams: 11/13/20 12:26 11/13/20 12: Labs: Lab Results 11/13/20 11/13/20 11/13/20 Range/Units 12:26 12: 12:26 WBC 6.0 (4.8-10.8) X10*3/uL RBC 4.68 (4.20-5.50) X10*6/uL Hgb 13.7 (12.0-16.0) g/dl Hct 41.6 (37-47) % MCV 88.9 (80-98) fL MCH 29.3 (27.0-33.0) pg MCHC 32.9 (31.0-35.0) g/dl RDW 12.8 (11.0-16.0) % Plt Count 251 (160-400) X10*3/uL MPV 9.7 (9.4-12.3) fL Immature Gran % (Auto) 0.2 (0.0-0.4) % Neut % (Auto) 66.6 (45-73) % Lymph % (Auto) 20.0 (20-40) % [place] % (Auto) 8.9 (2-11) % Eos % (Auto) 3.5 (0-4) % Baso % (Auto) 0.8 (0-2) % Lymph # (Auto) 1.2 (1.2-4.9) X10*3/uL [place] # (Auto) 0.5 (0.1-1.2) X10*3/uL Eos # (Auto) 0.2 (0.0-0.4) X10*3/uL Baso # (Auto) 0.1 (0.0-0.2) X10*3/uL Abs Immat Gran (auto) 0.01 (0.00-0.03) X10*3/uL Absolute Neuts (auto) 4.0 (2.0-8.3) X10*3/uL Absolute Nucleated RBC 0.000 (0.0-0.012) X10*3/uL Nucleated RBC % (auto) 0.0 (0.0-0.2) /100WBC D-Dimer 399 NG/ML Sodium 141 (135-145) mmol/L Potassium 4.4 (3.3-5.1) mmol/L Chloride 105 (96-108) mmol/L Carbon Dioxide 26 (22-29) mmol/L Anion Gap 14 (12-20) BUN 8 L (9-16) mg/dL Creatinine 0.81 (0.5-1.4) mg/dL Estim Creat Clear Calc 62.9 Estimated GFR > 60 Random Glucose 99 (60-115) mg/dL Calcium 9.2 (8.4-10.2) mg/dL Imaging Data Right lower extremities ultrasound: Radiologist's impression: No DVT demonstrated in the right lower extremity. Multiple enlarged superficial veins in the right mid calf due to superficial thrombophlebitis. 5.2 cm Green's cyst. Discharge Plan Discharge Clinical Impression: Cellulitis Patient Disposition: Home, Self-Care Instructions: Cellulitis (ED) Prescriptions: New doxycycline hyclate 100 mg tablet 100 mg PO BID Qty: 14 RF: 0 No Action cholecalciferol (vitamin D3) [Vitamin D3] 25 mcg (1,000 unit) Capsule 0 mcg PO DAILY RF: 0 levothyroxine 100 mcg Capsule 100 mcg PO DAILY@0630 RF: 0 multivitamin Tablet 1 tab PO DAILY RF: 0 omeprazole magnesium [Prilosec OTC] 20 mg tablet,delayed release (DR/EC) 20 mg PO DAILY Qty: 30 RF: 0 colchicine 0.6 mg capsule 0.6 mg PO DAILY Qty: 60 RF: 0 amlodipine 5 mg Tablet 5 mg PO DAILY Qty: 30 RF: 0 Referrals: Eddie Fernando MD [Primary Care Provider] - 2 days Interventions: ED Discharge Assessment Last Done: 11/13/20 18:46 Discharge Date/Time: 11/13/20 18:47
[2020-11-13 18:21] VITALS: BP 147/69; PULSE 84; RESP 16; O2SAT 99
== END 2020-11-13 18:47 | disposition home or self-care (01) ==
PROVIDERS: Emergency Provider Emergency Medicine; PCP Internal Medicine
DX: L03.115 Cellulitis of right lower limb (principal); M79.604 Pain in right leg; I10 Essential (primary) hypertension; Z86.718 Personal history of other venous thrombosis and embolism; Z79.899 Other long term (current) drug therapy
CPT/HCPCS: 36415; 80048; 85025; 85379; 93971; 99284

== ENCOUNTER 2021-07-28 10:37 | Outpatient (REF) | payer MEDICARE, SELFPAY ==
--- NOTE | ~2021-07-28 | MM_ITS ---
EXAMINATION: MM SCREENING DIGITAL BREAST TOMOSYNTHESIS, BILATERAL CLINICAL INFORMATION: Screening. Asymptomatic. The lifetime risk of breast cancer based on the Tyrer-Cuzick Model is 2%. COMPARISON: Mammography: 06/24/2020, 02/18/2019, 12/30/2017 TECHNIQUE: Digital breast tomosynthesis is performed in both the craniocaudal and mediolateral oblique views along with computer-aided detection (CAD). Synthesized 2D images are generated from the tomosynthesis. FINDINGS: There are scattered areas of fibroglandular density (ACR BI-RADS breast composition Category b). There are no significant masses, abnormal calcifications, or other abnormalities. Parenchymal pattern is similar to prior studies. Breast parenchymal density borders on predominantly fatty. The axilla and skin contours are unremarkable. MM/MM tomosynthesis screening BI IMPRESSION: No mammographic evidence of malignancy. ASSESSMENT: BI-RADS 1: Negative RECOMMENDATION: Routine annual mammography screening. This patient's information was entered into a reminder system with a target due date for their next mammogram.
== END 2021-07-28 10:38 | disposition home or self-care (01) ==
LOC: HO.MAMMO 10:37
PROVIDERS: PCP Internal Medicine; Visit Provider Internal Medicine
DX: Z12.31 Encounter for screening mammogram for malignant neoplasm of breast (principal)
CPT/HCPCS: 77063; 77067

== ENCOUNTER 2021-10-27 13:19 | Outpatient (REF) | payer MEDICARE, SELFPAY ==
--- NOTE | ~2021-10-27 | MM_ITS ---
EXAMINATION: BONE DENSITOMETRY CLINICAL INDICATION: Menopause. COMPARISON: Previous BD dated 07/24/2012 and baseline BD dated 08/28/2006. TECHNIQUE: Using a 1Ring DXA System (software version: 13.1) manufactured by [employer], dual-energy x-ray absorptiometry was performed of the lumbar spine and left hip. The images are of good technical quality. Summary results are attached. FINDINGS: AP SPINE L1-L4: Current: BMD 1.818 g/cm2, Z-score 6.0, T-score 5.3, normal, 16.2% increase from previous, 24.1% increase from baseline (<5% change is not significant). Prior: BMD 1.564 g/cm2. Baseline: BMD 1.465 g/cm2. LEFT FEMUR, NECK: Current: BMD 0.741 g/cm2, Z-score -0.6, T-score -2.1, osteopenia. Prior: BMD 0.956 g/cm2. Baseline: BMD 0.984 g/cm2. LEFT FEMUR, TOTAL: Current: BMD 0.853 g/cm2, Z-score 0.1, T-score -1.2, osteopenia, 20.1% decrease from previous, 27.6% decrease from baseline (<5% change is not significant). Prior: BMD 1.068 g/cm2. Baseline: BMD 1.178 g/cm2. IDENTIFIED RISK FACTORS: Menopause, height loss, history of fracture (adult). HISTORY OF FRACTURE: Spine. MEDICATIONS: Multivitamin. MM/XR DEXA axial skeleton IMPRESSION: 1. DIAGNOSIS: Osteopenia based on the lowest T-score value of -2.1 in the femoral neck applying World Health Organization criteria. 2. 10-YEAR FRACTURE RISK PREDICTION, FRAX: Major osteoporotic fracture (clinical spine, forearm, hip or shoulder) 20.7%. Hip fracture 5.8%. 3. Treatment Recommendations: NOF guidelines recommend consideration for treatment in postmenopausal women and men age 50 and older presenting with the following: -A hip or vertebral (clinical or morphometric) fracture. -T-score less than or equal to -2.5 at the femoral neck or spine after appropriate evaluation to exclude secondary causes. -Low bone mass at the hip or spine and a 10-year fracture probability by FRAX of greater than or equal to 3% for hip fracture or greater than or equal to 20% for major osteoporotic fracture based on the [place] adapted WHO algorithm. 4. Other Recommendations: All treatment decisions require clinical judgment and consideration of individual patient factors, including patient preferences, comorbidities, previous drug use, risk factors not captured in the FRAX model (e.g. frailty, falls, vitamin D deficiency, increased bone turnover, interval significant decline in bone density) and possible under or overestimation of fracture risk by FRAX. Additional medical evaluation for secondary cause of low bone mineral density may be appropriate. FUTURE SCAN RECOMMENDATION: People with diagnosed cases of osteoporosis or at high risk for fracture should have regular bone mineral density tests. For patients eligible for Medicare, routine testing is allowed once every 2 years. The testing frequency can be increased to one year for patients who have rapidly progressing disease, those who are receiving or discontinuing medical therapy to restore bone mass, or have additional risk factors.
== END 2021-10-27 13:20 | disposition home or self-care (01) ==
LOC: HO.MAMMO 13:19
PROVIDERS: PCP Internal Medicine; Visit Provider Internal Medicine
DX: Z13.820 Encounter for screening for osteoporosis (principal); Z78.0 Asymptomatic menopausal state
CPT/HCPCS: 77080

== ENCOUNTER 2022-05-02 07:20 | Outpatient (REF) | payer MEDICARE, SELFPAY ==
--- NOTE | ~2022-05-02 | XR_ITS ---
EXAMINATION: XR HIP, LEFT CLINICAL INFORMATION: Pain. COMPARISON: None TECHNIQUE: AP and frog-leg lateral views of the left hip. FINDINGS: Bony alignment and mineralization are normal. The left acetabular joint space is well-maintained. There is slight peripheral osteophyte formation of the articular surfaces of the left hip. There is enthesophyte formation of the left ischium and of the greater tuberosity of the proximal left femur. No fracture or dislocation is seen. There is no foreign body. XR/XR hip LT min 2V IMPRESSION: Mild osteoarthritic change is seen of the left hip. No fracture or dislocation is seen
--- NOTE | ~2022-05-02 | XR_ITS ---
EXAMINATION: XR LUMBOSACRAL SPINE CLINICAL INFORMATION: Chronic lower back pain without sciatica. COMPARISON: None TECHNIQUE: AP and lateral views of the lumbar spine and lateral view of the lumbosacral junction. FINDINGS: There is bony demineralization. There is a moderate L1 upper endplate compression fracture. At L2-L3 and L3-L4, there is vacuum disc phenomenon and mild posterior disc space narrowing. At L4-L5, there is moderate disc space narrowing and a 5 mm anterolisthesis. The remaining disc spaces are relatively well-maintained. No acute fracture or spondylolisthesis is seen. This multi-level thoracolumbar spondylosis. There is lumbar facet arthropathy, most pronounced at L4-L5 and L5-S1. Aortoiliac atherosclerotic calcifications are noted. XR/XR lumbar spine 2-3V IMPRESSION: 1. There is multi-level thoracolumbar degenerative disc disease, spondylosis and facet arthropathy. Degenerative disc disease is most pronounced at L4-L5, where it is moderately severe, with a 5 mm anterolisthesis. 2. There is an age-indeterminate moderate L1 upper endplate compression fracture.
[2022-05-02 07:29] LABS: MANUAL DIFF FLAG NO
[2022-05-02 08:25] LABS: Basophils Absolute Auto 0.1 X10*3/uL (0.0-0.2); Basophils Percent Auto 1.2 % (0-2); Eosinophils Absolute Auto 0.3 X10*3/uL (0.0-0.4); Eosinophils Percent Auto 4.5 % (0-4); Hematocrit 43.9 % (37.0-47.0); Imm Gran Abs Auto 0.03 X10*3/uL (0.00-0.03); Imm Gran Pct Auto 0.5 % (0.0-0.4); Lymphocytes Absolute Auto 1.6 X10*3/uL (1.2-4.9); Lymphocytes Percent Auto 27.6 % (20-40); Mean Corpuscular HGB Conc 31.9 g/dl (31.0-35.0); Mean Corpuscular Hemoglobin 28.2 pg (27.0-33.0); Mean Corpuscular Volume 88.5 fL (80.0-98.0); Mean Platelet Volume 10.2 fL (9.4-12.3); Monocytes Absolute Auto 0.5 X10*3/uL (0.1-1.2); Monocytes Percent Auto 8.9 % (2-11); Neutrophils Absolute Auto 3.3 x10*3/uL (2.0-8.3); Neutrophils Percent Auto 57.3 % (45-73); Platelet Count 275 X10*3/uL (160-400); Red Blood Count 4.96 X10*6/uL (4.20-5.50); Red Cell Distribution Width 12.8 % (11.0-16.0); White Blood Count 5.8 X10*3/uL (4.8-10.8)
[2022-05-02 08:36] LABS: Estimated Average Glucose 117 mg/dL; Hemoglobin A1c % 5.7 %
[2022-05-02 08:58] LABS: Alanine Aminotransferase 16 U/L (0-31); Albumin Level 4.2 g/dL (3.5-5.0); Alkaline Phosphatase 73 U/L (39-117); Anion Gap 17 (12-20); Aspartate Amino Transferase 19 U/L (5-31); Bilirubin Total 0.5 mg/dL (0.0-1.0); Blood Urea Nitrogen 11 mg/dL (9-16); Calcium 9.5 mg/dL (8.4-10.2); Carbon Dioxide 27 mmol/L (22-29); Chloride 103 mmol/L (96-108); Estimated Glomerular Filt Rate > 60; Glucose Random 105 mg/dL (60-115); Potassium 4.5 mmol/L (3.3-5.1); Sodium 142 mmol/L (135-145); Total Protein 6.7 g/dL (6.5-8.0)
[2022-05-02 09:18] LABS: Free T4 (Free Thyroxine) 1.03 ng/dL (0.71-1.85); Vitamin D 25-OH Total 26.2 ng/mL (>30)
== END 2022-05-02 07:21 | disposition home or self-care (01) ==
LOC: HO.XRAY 07:20
PROVIDERS: PCP Internal Medicine; Visit Provider Internal Medicine
DX: I10 Essential (primary) hypertension (principal); E78.00 Pure hypercholesterolemia, unspecified; E03.9 Hypothyroidism, unspecified; R35.1 Nocturia; R73.01 Impaired fasting glucose; E55.9 Vitamin D deficiency, unspecified; M54.50 Low back pain, unspecified; M25.552 Pain in left hip; G89.29 Other chronic pain
CPT/HCPCS: 36415; 72100; 73502; 80053; 82306; 83036; 84439; 85025

== ENCOUNTER 2022-07-20 11:00 | Outpatient (RCR) | payer MEDICARE, SELFPAY | END 2022-07-20 13:54 | disposition home or self-care (01) | LOC: HO.PT 11:00 | PROVIDERS: PCP Internal Medicine; Visit Provider Internal Medicine | DX: M25.562 Pain in left knee (principal); G89.29 Other chronic pain | CPT/HCPCS: 97110; 97162; 97530 ==

== ENCOUNTER 2024-02-27 10:18 | Outpatient (REF) | payer MEDICARE, SELFPAY ==
--- NOTE | ~2024-02-27 | MM_ITS ---
EXAMINATION: MM SCREENING DIGITAL BREAST TOMOSYNTHESIS, BILATERAL CLINICAL INFORMATION: Screening. Asymptomatic. COMPARISON: Mammography: Comparison is made with available priors TECHNIQUE: Digital breast mammography with tomosynthesis is performed in both the craniocaudal and mediolateral oblique views along with computer-aided detection (CAD). FINDINGS: There are scattered areas of fibroglandular density (ACR BI-RADS breast composition Category b). There are no significant masses, abnormal calcifications, or other abnormalities. MM/MM tomosynthesis screening BI IMPRESSION: No mammographic evidence of malignancy. ASSESSMENT: BI-RADS BI-RADS 1 - Negative RECOMMENDATION: Routine annual mammography screening. 1 year F/U This examination should not preclude the clinical evaluation of a suspicious palpable abnormality. This patient's information was entered into a reminder system with a target due date for their next mammogram. Electronically signed by: Lis Moreno DO 03/04/2024 05:25 PM SRINIVAS
== END 2024-02-27 10:19 | disposition home or self-care (01) ==
LOC: HO.MAMMO 10:18
PROVIDERS: PCP Internal Medicine; Visit Provider Internal Medicine
DX: Z12.31 Encounter for screening mammogram for malignant neoplasm of breast (principal)
CPT/HCPCS: 77063; 77067

== ENCOUNTER → 2024-02-27 10:30 | Outpatient (BNV) | payer MEDICARE, SELFPAY | PROVIDERS: PCP Internal Medicine; Visit Provider Internal Medicine | DX: Z12.31 Encounter for screening mammogram for malignant neoplasm of breast (principal) | CPT/HCPCS: 77063; 77067 ==

== ENCOUNTER 2024-09-10 09:26 | Outpatient (REF) | payer MEDICARE, SELFPAY ==
[2024-09-10 10:16] LABS: Anion Gap 12 (12-20); Blood Urea Nitrogen 13 mg/dL (9-16); Calcium 9.6 mg/dL (8.4-10.2); Carbon Dioxide 28 mmol/L (22-29); Chloride 105 mmol/L (96-108); Estimated Glomerular Filt Rate > 60; Glucose Random 93 mg/dL (60-115); Potassium 4.2 mmol/L (3.3-5.1); Sodium 141 mmol/L (135-145)
== END 2024-09-10 09:27 | disposition home or self-care (01) ==
LOC: HO.LAB 09:26
PROVIDERS: PCP Internal Medicine; Visit Provider Internal Medicine
DX: I25.119 Atherosclerotic heart disease of native coronary artery with unspecified angina pectoris (principal)
CPT/HCPCS: 36415; 80048

== ENCOUNTER 2025-01-21 11:00 | Outpatient (RCR) | payer MEDICARE, SELFPAY | END 2025-01-27 15:48 | disposition home or self-care (01) | LOC: HO.PT 11:00 | PROVIDERS: PCP Internal Medicine; Visit Provider Orthopaedic Surgery | DX: Z47.1 Aftercare following joint replacement surgery (principal); Z96.652 Presence of left artificial knee joint | CPT/HCPCS: 97110; 97162; 97530; 97535 ==

== ENCOUNTER 2025-02-21 10:42 | Outpatient (REF) | payer MEDICARE, SELFPAY ==
--- OUTSIDE RECORDS SUMMARY | 2025-02-19 11:40 | XMS_ITS | Encounter Summary ---
Author Organization [facility] Address [address] [address] Phone Care Team Providers Care Taper Printed [employer] Layout Name Role Phone Eddie Fernando MD Primary Care Provider Ishaan Das MD Unavailable [phone] Red Vicente MD Unavailable Ace Guillen MD Unavailable Eddie Fernando MD Unavailable [phone] Radha Colon MD Unavailable [phone] Reason for Visit * Reason Comments Sick Visit Right side hip pain Encounter Details Date Type Department Care Team (Late st Contact Info) Description 02/19/2025 11:40 AM EST Office Visit [facility] [address] [place] [address] Laura Robbins PA-C [address] [place] [address] [email or web address] Right hip pain (Primary Dx) Social History Tobacco Use Types Packs/Day Years Used Date Smoking Tobacco: Former Cigarettes 0.3 5 0 11/12/1966 - 11/13/1971 Smokeless Tobacco: Never Alcohol Use Standard Drinks/Week Comments Not Currently 0 (1 standard drink = 0.6 oz pur e alcohol) Education Answer Date Recorded Are you interested in more education? Not on salbador e 07/22/2022 Are you concerned about learning? Not on file 07/22/2022 No 07/22/2022 No 07/22/2022 Digital Access Answer Date Recorded No 08/22/2022 No 08/22/2022 Reliable internet access at home? Not on file 08/22/2022 Device with a working camera? Not on file Intimate Partner Violence Answer Date R ecorded Denied Basic Needs Not on file 01/27/2025 In the past 12 months have y ou been in a relationship with a person who hurts, threatens, or tries to control you? No 01/27/2025 Worried food would run out Not on file 01/27 In the past 12 months have y ou been in a relationship with a person who hurts, threatens, or tries to control you? No 01/27/2025 Comments No Sex and Gender Information Value Date Recorded Sex Assigned at Not on file Legal Sex Female 10:13 PM EDT Gender Identity Not on file Sexual Orientation Not on file documented as of this encounter Last Filed Vital Signs Vital Sign Reading Time Taken Comments Blood Pressure 130/82 02/19/2025 11:25 AM EST Pulse 79 02/19/2025 11:25 AM EST Temperature 36.3 C (97.4 F) 02/19/2025 11:25 AM EST Respiratory Rate 14 02/19/2025 11:25 AM EST Oxygen Saturation 97% 02/19/2025 11:25 AM EST Inhaled Oxygen Concentration - - Weight 101.6 kg (224 lb) 02/19/2025 11:25 AM EST Height 159.1 cm (5' 2.64 ) 02/19/2025 11:[address] Body Mass Index 40.14 02/19/2025 11:25 AM EST documented in this encounter Progress Notes * Laura Robbins PA-C - 02/19/2025 11:40 AM EST Subjective Mónica Clayton is a 84 y.o. female. History of Present Illness The patient is an 84-year-old female who presents for a sick visit. She reports experiencing pain in her right hip, which she initially attributed to a pulled muscle. The onset of the pain was last . She has difficulty lifting her leg straight out but can move it backward and side to side. She also experiences pain when attempting to flex her hip. The pain disrupts her sleep, causing her to wake up every 1.5 to 2 hours. She has been managing the pain with Tylenol 500 mg, taking two tablets twice daily. She has a history of left knee surgery and was previously able to ambulate without a cane. She experiences intermittent lower back pain, particularly during activities such as vacuuming. She also reports pain in the groin, thigh, and buttock, but does not experience any radiating pain down her leg.She reports no recent trauma or injury. She recalls visiting a friend's condo last , where she navigated high steps without the aid of a cane. She occasionally experiences knee pain, which isless severe than before. She has a history of a compressed disc, diagnosed in 2012 following a fall. She reports no numbness or tingling in the groin and no bowel incontinence. She has been unable to perform her exercises due to the pain. She has previously undergone physicaltherapy until she was discharged. Current Outpatient Medications Ordered in [facility] Medication Sig acetaminophen (TYLENOL) 500 MG tablet Take 1,000 mg by mouth. Twice daily up to three times daily aspirin 81 MG EC tablet Take 81 mg by mouth 2 (two) times a day. (Patient taking differently: Take 81 mg by mouth daily.) BIOTIN ORAL Take 1 capsule by mouth daily. cholecalciferol, vitamin D3, (VITAMIN D3 ORAL) Take 1,000 Units by mouth daily. dorzolamide-timoloL (COSOPT) 22.3-6.8 mg/mL ophthalmic solution Place 1 drop into the right eye 2 (two) times a day. latanoprost (XALATAN) 0.005 % ophthalmic solution Place 1 drop into the right eye nightly at bedtime. levothyroxine (SYNTHROID, LEVOTHROID) 100 MCG tablet TAKE 1 TABLET(100 MCG) BY MOUTH EVERY MORNING metoprolol succinate (TOPROL-XL) 25 MG 24 hr tablet Take 25 mg by mouth. (Patient taking differently: Take 25 mg by mouth daily.) PEG 400-propylene glycol (SYSTANE) 0.4-0.3 % Drop Place 1 drop into each eye 2 (two) times a day asneeded. rosuvastatin (CRESTOR) 10 MG tablet Take 10 mg by mouth. (Patient taking differently: Take 10 mg bymouth daily.) triamcinolone acetonide 0.1 % cream Apply 1 Application topically 2 (two) times a day as needed (for flare ups). acetaminophen (TYLENOL) 325 mg tablet Take 650 mg by mouth daily. (Patient not taking: Reported on 02/19/2025) multivitamin per tablet Take 1 tablet by mouth daily. (Patient not taking: Reported on 02/19/2025) Review of Systems All other systems reviewed and are negative. Objective Physical Exam Blood pressure 130/82, pulse 79, temperature 36.3 ??C (97.4 ??F), temperature source Temporal, resp. rate 14, height 159.1 cm (5' 2.64 ), weight 101.6 kg (224 lb), SpO2 97%, not currently . Gen: Alert, pleasant and cooperative, no acute distress. HEENT: Atraumatic, normocephalic. PERRL. No gross hearing deficits noted. Mucous membranes moist. Neck supple and symmetrical. Skin: [place], warm, dry. Chest: Equal chest rise and fall, no respiratory distress. Ext: No gross deformities. Ambulating with a cane. Tenderness to palpation along the right trochanteric bursa as well as the right hip flexor and along the right IT band. Also mild tenderness to palpation along the right anterior thigh. No tenderness palpation along bilateral SI joints. Patient haddifficulty with active knee extension but had no difficulty with active knee flexion or hip flexion. Neuro: CN II-XII grossly intact. Alert and oriented x 3. Normal speech and language. Memory intact.Mood appropriate. Results Assessment & Plan 1. Right hip pain: She reports experiencing right hip, buttocks, thigh, and groin pain since 02/13/2025 without any history of trauma or injury. She has been taking Tylenol with some relief of symptoms. On exam she hadtenderness palpation along the right trochanteric bursa, right hip flexor, right IT band, right anterior thigh. No red flag symptoms. Etiology of the symptoms unknown but suspect musculoskeletal in nature, possibly tendinitis versus bursitis. Recommend symptomatic treatment with Tylenol/NSAIDs. Also recommend stretching and alternating between heat and ice. Will obtain a right hip x-ray to further assess. If symptoms continue to persist, can consider physical therapy and orthopedics referral. I obtained verbal consent from the patient or their proxy to record this visit for purposes of producing a draft of the encounter documentation. Laura Robbins PA-C documented in this encounter Miscellaneous Notes * Assessment & Plan Note - Laura Robbins PA-C - 02/19/2025 12:03 PM EST Associated Problem(s): Right hip pain She reports experiencing right hip, buttocks, thigh, and groin pain since 02/13/2025 without any history of trauma or injury. She has been taking Tylenol with some relief of symptoms. On exam she hadtenderness palpation along the right trochanteric bursa, right hip flexor, right IT band, right anterior thigh. No red flag symptoms. Etiology of the symptoms unknown but suspect musculoskeletal in nature, possibly tendinitis versus bursitis. Recommend symptomatic treatment with Tylenol/NSAIDs. Also recommend stretching and alternating between heat and ice. Will obtain a right hip x-ray to further assess. If symptoms continue to persist, can consider physical therapy and orthopedics referral. documented in this encounter Plan of Treatment Upcoming Encounters Date Type Department Care Team (Late st Contact Info) Description 03/06/2025 2:45 PM EST Outpatient Surgery [facility] ~[address] [address] Chan Davis MD [address] [place] [address], [address] [place] [address] 03/07/2025 1:00 PM EST Office Visit [facility] in [address] [address] Chan Davis MD [address] [place] [address], [address] [place] [address] 03/14/2025 1:00 PM EST Office Visit [facility] in [address] [address] Chan Davis MD [address] [facility], [address] [place] [address] 04/04/2025 1:00 PM EST Office Visit [facility] in [address] [address] Chan Davis MD [address] [place] [address], [address] [place] [address] 07/28/2025 1:30 PM EDT Office Visit [facility] Internal Medicine [address] [place] [address] Eddie Frenando MD [address] [place] [address] Scheduled Orders Name Type Priority Associated Diagnoses Orde r Schedule XR Hip (Right) Imaging Routine Right hip pain Expected: 02/19/2025, Expires: 05/22/2025 documented as of this encounter Visit Diagnoses Diagnosis Right hip pain- Primary Pain in joint, pelvic region and thigh documented in this encounter Additional Health Concerns Assessment Noted Time PHQ-9 Depression Total Score: 3 01/28/20 25 7:31 AM EST PHQ-2 Depression Total Score: 2 01/28/20 25 7:31 AM EST documented as of this encounter Care Teams T[employer] Relationship Specialty Start Date End Date Eddie Fernando MD [address] [place] [address] maria PCP - General 02/23/17 Ishaan Das MD [address] [facility] [place] [address] Hospitalist 03/02/20 Red Vicente MD [address] [place] [address] [address] [place] [address] Cardiology 03/02/20 Ace Guillen MD [address] [place] [address] [address] [place] [id number] Internal Medicine 03/30/20 Eddie Fernando MD [address] [place] [address] [email or web address] Insurance Assigned Provider 07/01/23 Radha Colon MD [address] [place] [address] [address] [place] [address] Orthopedic Surgery 04/21/22 documented as of this encounter Additional Source Comments The information contained in this document represents components of the legal health record. It is not the complete legal health record.[facility]
--- NOTE | ~2025-02-21 | XR_ITS ---
EXAMINATION: XR HIP, RIGHT CLINICAL INFORMATION: HIP PAIN COMPARISON: None available. TECHNIQUE: Two views of the right hip. FINDINGS: No fracture, dislocation, or suspicious bone lesion. There is normal alignment. Joint space is grossly preserved although there are mild degenerative changes within the right hip joint with mild acetabular spurring. There are enthesopathic changes of the greater trochanter, hamstrings insertion, and gluteal insertion upon the iliac wing. There is sclerosis and degenerative change of the right SI joint. There is no gross soft tissue abnormality. XR/XR hip RT min 2V IMPRESSION: 1. No acute bony or soft tissue abnormality of the right hip. 2. Mild degenerative hip arthritis. 3. Enthesopathic changes as detailed. Electronically signed by: Walt Warner MD 02/21/2025 11:21 AM [facility]
--- OUTSIDE RECORDS SUMMARY | 2025-02-21 10:47 | XMS_ITS | Patient Health Record ---
Author Organization [facility] Address [address] [place] [address] Care Team Providers Care Realty Loan Specialist Name Role Phone Eddie Fernando MD Primary Care Provider Deven Stewart Unavailable [phone] Reason For Referral No Information Plan Of Treatment No Information Insurance Providers Payer Name Payer Address Payer Phone Subscriber Number Group Number Insured Name Patient Relationship to Insured Coverage Start Date Coverage End Date MEDICARE OF [place] [address] [place] [address] [id number] JOSE BRUNNER Self - patient is the insured [employer] ATTN CLAIMS [address] [place] [address] [id number] JOSE BRUNNER Self - patient is the insured
--- OUTSIDE RECORDS SUMMARY | 2025-02-21 10:47 | XMS_ITS | Encounter Summary ---
Author Organization [facility] Address [address] [address] Phone Care Team Providers Care Soaker Meat Name Role Phone Eddie Fernando MD Primary Care Provider [phone] Ishaan Das MD Unavailable [phone] Red Vicente MD Unavailable Ace Guillen MD Unavailable Eddie Fernando MD Unavailable [phone] Radha Colon MD Unavailable [phone] Reason for Visit * Reason Onset Date Comments Triage 02/17/2025 Left side pain Encounter Details Date Type Department Care Team (Late st Contact Info) Description 02/17/2025 Telephone [facility] Internal Medicine [address] [place], [place] [id number] Eddie Fernando MD [address] [place] [address] maria [email or web address] Triage (Left side pain) Social History Tobacco Use Types Packs/Day Years [...] on file documented as of this encounter Progress Notes * Mya Sharma RN - 02/17/2025 11:42 AM EST Spoke to Mónica. States she was doing well after her left knee replacement. Now, she's having right sided knee pain. States she is having trouble walking on the right knee. States she called her orthooffice, who said she needed to have a visit with PCP first. States she is having pain on the right side, on the hip, knee, thigh, everything. Pain started about 1 week ago. No recent fall or injury. No swelling or redness on that side. At worst, pain is 8-9/10. Feels like nerve pain, affecting her sleep. She is taking tylenol 500mg at home, which has not helped much. Also has tramadol, but hasn'ttaken it yet. She may try it. Scheduled with [facility] for eval on Monday. She is appreciative. * Beatris Garza - 02/17/2025 11:36 AM EST [facility] PEN Top Smart Phrases: Complete the Following for ALL Patient Symptoms [facility] Red Owen Yellow Green Tool Call Back Number: (& caller's name if not the patient) [phone] Description of Symptoms: What symptoms are you experiencing? Right side pain When did the symptoms start? 02/10 Has this happened before? No - symptoms started on 02/10 1) Enter the Reason for Call (TRIAGE) & C Comment (COLOR + Symptom) (Ex: TRIAGE - YELLOW, tick bite ) 2) Select the color-based designation below before taking next steps & documenting the outcome Green Call Designation & Outcome Green Symptom(s): Triage (Left side pain) Should Be Booked Within 2-3... Days [x] Weeks [] Schedule an Appointment Based on the Listed Green Options in [facility] (PC & Pedi) OR Offer Care Alternative Options (UC/VUC) from [facility] Reference Guide Tabs Scheduling Outcome: FYI - patient unable to schedule within suggested timeframe due to appointment access; patient declined to book further out and declined UC/VUC options, would like to speak w/clinical warehouse team member. Route TE (or not) according to Practice-Specific guidelines. documented in this encounter Plan of Treatment Upcoming Encounters Date Type Department Care Team (Late st Contact Info) Description 03/06/2025 2:45 PM EST Outpatient Surgery [facility] ~[address] [address] Chan Davis MD [address] [place] [address], [address] [address] 03/07/2025 1:00 PM EST Office Visit [facility] in [address] [address] Chan Davis MD [address] [place] [address], [address] [address] 03/14/2025 1:00 PM EST Office Visit [facility] in [address] [address] Chan Davis MD [address] [facility], [address] [place] [address] 04/04/2025 1:00 PM EST Office Visit [facility] in [address] [address] Chan Davis MD [address] [place] [address], [address] [place] [address] 07/28/2025 1:30 PM EDT Office Visit [facility] Internal Medicine [address] [place] [address] Eddie Fernando MD [address] [place] [address] documented as of this encounter Visit Diagnoses Not on filedocumented in this encounter Additional Health Concerns Assessment Noted Time PHQ-9 Depression Total Score: 3 01/28/20 25 7:31 AM EST PHQ-2 Depression Total Score: 2 01/28/20 25 7:31 AM EST documented as of this encounter Care Teams Soaker Meat Relationship Specialty Start Date End Date Eddie Fernando MD [address] [place] [address] PCP - General 02/23/17 Ishaan Das MD [address] [place] [address] [place] [address] Hospitalist 03/02/20 Red Vicente MD [address] [place] [address] Cardiology 03/02/20 Ace Guillen MD [address] [place] [address] [address] [place] [phone] Internal Medicine 03/30/20 Eddie Fernando MD [address] [place] [address] [email or web address] Insurance Assigned Provider 07/01/23 Radha Colon MD [address] [place] [address] [address] [place] [address] [email or web address] Complete Orthopedic Surgery 04/21/22 documented as of this encounter Additional Source Comments The information contained in this document represents components of the legal health record. It is not the complete legal health record.[facility]
--- OUTSIDE RECORDS SUMMARY | 2025-02-21 10:47 | XMS_ITS | Encounter Summary ---
Author Organization [facility] Address [address] [address] Phone Care Team Providers Care Conference Specialist Name Role Phone Eddie Fernando MD Primary Care Provider [phone] Ishaan Das MD Unavailable [phone] Red Vicente MD Unavailable Ace Guillen MD Unavailable [phone] Eddie Fernando MD Unavailable [phone] Radha Colon MD Unavailable [phone] Encounter Details Date Type Department Care Team (Late st Contact Info) Description 01/24/2025 Orders Only [facility] in [address] [address] Chan Davis MD [address] [place] [address] [email or web address] Dislocated IOL (intraocular lens), posterior (Primary Dx) Social History Tobacco Use Types [...] on file documented as of this encounter Plan of Treatment Upcoming Encounters Date Type Department Care Team (Late st Contact Info) Description 03/06/2025 2:45 PM EST Outpatient Surgery [facility] [address] [address] Chan Davis MD [address] [place] [address] 03/07/2025 1:00 PM EST Office Visit [facility] in [address] [address] Chan Davis MD [address] [place] [address], [address] [address] 03/14/2025 1:00 PM EST Office Visit [facility] in [address] [address] Chan Davis MD [address] [place] [address], [address] [address] 04/04/2025 1:00 PM EST Office Visit [facility] in [address] [address] Chan Davis MD [address] [place] [address], [address] [place] [address] 07/28/2025 1:30 PM EDT Office Visit [facility] Internal Medicine [address] [place], [place] [phone] Eddie Fernando MD [address] [place] [address] [email or web address] Scheduled Orders Name Type Priority Associated Diagnoses Orde r Schedule Intra-ocular lens order form -OS: Left Eye; New order Ophthalmology Routine Dislocated IOL (intraocular lens), posterior Expected: 01/24/2025, Expires: 04/26/2025 documented as of this encounter Visit Diagnoses Diagnosis Dislocated IOL (intraocular lens), posterior- Primary Posterior dislocation of lens documented in this encounter Additional Health Concerns Assessment Noted Time PHQ-2 Depression Total Score: 0 01/09/20 24 1:16 PM EDT documented as of this encounter Care Teams Conference Specialist Relationship Specialty Start Date End Date Eddie Fernando MD [address] [place] [address] [email or web address] PCP - General 02/23/17 Ishaan Das MD [address] [place] [address] [place] [address] Hospitalist 03/02/20 Red Vicente MD [address] [place] [address] 104 [place] [address] Cardiology 03/02/20 Ace Guillen MD [address] [place] [address] [address] [place] [phone] Internal Medicine 03/30/20 Eddie Fernando MD [address] [place] [address] [email or web address] Insurance Assigned Provider 07/01/23 Radha Colon MD [address] [place] [address] 140 [place] [address] [email or web address] 04/21/22 documented as of this encounter Additional Source Comments The information contained in this document represents components of the legal health record. It is not the complete legal health record.[facility]
--- OUTSIDE RECORDS SUMMARY | 2025-02-21 10:47 | XMS_ITS | Clinical Summary ---
Author Organization [facility] Address [address] [address] Phone Care Team Providers Care Odd Bundle Worker Name Role Phone Eddie Fernando MD Primary Care Provider Ishaan Das MD Unavailable [phone] Red Vicente MD Unavailable Ace Guillen MD Unavailable Eddie Fernando MD Unavailable [phone] Radha Colon MD Unavailable [phone] Allergies Active Allergy Reactions Criticality Noted Date Comments Amlodipine Other (See Comments) 03/02/2020 Increased heartburn and gerd Ciprofloxacin Diarrhea 09/26/2017 Codeine Nausea and/or Vomiting 09/26/2017 Medications multivitamin per tablet Take 1 tablet by mouth daily. Active PEG 400-propylene glycol (SYSTANE) 0.4-0.3 % Drop Place 1 drop into each eye 2 (two) times a day as needed. Active cholecalciferol, vitamin D3, (VITAMIN D3 ORAL) Take 1,000 Units by mouth daily. Active BIOTIN ORAL Take 1 capsule by mouth daily. Active triamcinolone acetonide 0.1 % cream Apply 1 Application topically 2 (two) times a day as needed (for flare ups). 024 Active dorzolamide-timol oL (COSOPT) 22.3-6.8 mg/mL ophthalmic solution Place 1 drop into the right eye 2 (two) times a day. Active latanoprost (XALATAN) 0.005 % ophthalmic solution Place 1 drop into the right eye nightly at bedtime. Active levothyroxine (SYNTHROID, LEVOTHROID) 100 MCG tabletIndications :Acquired hypothyroidism TAKE 1 TABLET(100 MCG) BY MOUTH EVERY MORNING 90 tablet 3 Active acetaminophen (TYLENOL) 325 mg tablet Take 650 mg by mouth daily. Active metoprolol succinate (TOPROL-XL) 25 MG 24 hr tablet Take 25 mg by mouth. Active rosuvastatin (CRESTOR) 10 MG tablet Take 10 mg by mouth. Active aspirin 81 MG EC tablet Take 81 mg by mouth 2 (two) times a day. Active acetaminophen (TYLENOL) 500 MG tablet Take 1,000 mg by mouth. Twice daily up to three times daily Active lisinopril (PRINIVIL,ZESTRIL ) 5 MG tablet TAKE 1 TABLET(5 MG) BY MOUTH DAILY 90 tablet 3 2024 Discontinued mupirocin (BACTROBAN) 2 % ointment Apply 1 Application topically 2 (two) times a day. 2024 Discontinued fluorouraciL (EFUDEX) 5 % cream Apply 1 Application topically as needed (prior derm appt). 2024 Discontinued ibuprofen (ADVIL,MOTRIN) 200 MG tablet Take 600 mg by mouth daily as needed for pain (specific location in comments). 2024 Discontinued celecoxib (CELEBREX) 200 MG capsule Take 200 mg by mouth 2 (two) times a day. 2024 Discontinued moxifloxacin (VIGAMOX) 0.5 % ophthalmic solution Place 1 drop into the left eye 4 (four) times a day. starting 1 day prior to surgery and continue until further notice 3 mL 1 025 2024 Discontinued difluprednate (DUREZOL) 0.05 % Drop Place 1 drop into the left eye 2 (two) times a day. starting 1 day prior to surgery and continue until further notice 5 mL 3 025 2024 Discontinued bromfenac (BROMSITE) 0.075 % ophthalmic solution Place 1 drop into the left eye daily. starting 1 day prior to surgery and continue until further notice 5 mL 3 025 2024 Discontinued Active Problems Problem Noted Date Diagnosed Date Right hip pain 02/19/2025 Assessment & Plan (02/19/2025 12:03 PM EST): She reports experiencing right hip, buttocks, thigh, and groin pain since 02/13/2025 without any history of trauma or injury. She has been taking Tylenol with some relief of symptoms. On exam she had tenderness palpation along the right trochanteric bursa, right [...] can consider physical therapy and orthopedics referral. Class 3 severe obesity due t o excess calories without serious comorbidity with body mass index (BMI) of 40.0 to 44.9 in adult 04/21/2022 Hypertension 04/09/2020 Acquired hypothyroidism 09/26/2017 Carpal tunnel syndrome 09/26/2017 Gastroesophageal reflux disease 09/26/2017 Hyperlipidemia 09/26/2017 Hypothyroid 09/26/2017 Impaired fasting glucose 09/26/2017 Malignant melanoma of skin of face 09/26/2017 Other specified hypothyroidism 09/26/2017 Psoriasis 09/26/2017 Pure hypercholesterolemia 09/26/2017 Chronic venous insufficiency 09/26/2017 Encounters Date Type Department Care Team Description 02/19/2025 11:40 AM EST Office Visit [facility] Internal Medicine [address] [place] [address] Laura Robbins PA-C Right hip pain (Primary Dx) 02/17/2025 Telephone [facility] Internal Medicine [address] [place] [address] Eddie Fernando MD Triage (Left side pain) 02/12/2025 Telephone [facility] Internal Medicine 40 [place] [address] Eddie Fernando MD Pre-op 01/27/2025 1:30 PM EST Office Visit [facility] Internal Medicine [address] [place] [address] Eddie Fernando MD Routine general medical examination at a health care facility (Primary Dx); Hypothyroidism, unspecified type; Class 3 severe obesity due to excess calories with serious comorbidity and body mass index (BMI) of 40.0 to 44.9 in adult; Gastroesophageal reflux disease, unspecified whether esophagitis present; Heart murmur; Primary hypertension; Acquired hypothyroidism; ASCVD (arteriosclerotic cardiovascular disease); Impaired fasting blood sugar 01/24/2025 Orders Only [facility] in [address] [address] Chan Davis MD Dislocated IOL (intraocular lens), posterior (Primary Dx) 12/13/2024 Telephone [facility] in [address] [address] Chan Davis MD 12/12/2024 Telephone [facility] in [address] [address] Chan Davis MD 12/11/2024 Telephone [facility] in [address] [address] Chan Davis MD 12/02/2024 Orders Only [facility] in [address] [address] Chan Davis MD Dislocated IOL (intraocular lens), initial encounter (Primary Dx); Vitreous prolapse of right eye 11/27/2024 1:30 PM EDT Office Visit [facility] in [address] [address] Chan Davis MD Dislocated IOL (intraocular lens), initial encounter (Primary Dx) from Last 3 Months Immunizations Immunization Administration Dates Next Due COVID-19 (Pre-01/16) Pfizer Vaccine, mRNA, PF 05/18/2020,04/27/2020 INFLUENZA, SPLIT VIRUS, TRIVALENT PF 12/04/2019 Influenza High-Dose Quadriva lent Preservative Free IM 01/07/2022,12/12/2020 Influenza High-Dose Trivalen t Preservative Free IM 01/09/2024,12/20/2018,12/28/2016,01/31,02/27/2013 Influenza Quadrivalent Adjuv anted Preservative Free IM 12/22/2022 Influenza Quadrivalent Prese rvative Free IM 01/05/2018 Influenza Trivalent Adjuvant ed Preservative free IM 12/06/2024 Pneumococcal conjugate PCV13 05/07/2015 Pneumococcal polysaccharide PPSV23 09/26/2017, Td (adult) 5 Lf Tetanus Toxo id, PF, Adsorbed 06/25/2001 Tdap 08/30/2012 Zoster live 10/26/2011 Family History Medical History Relation Comments Hypertension Brother 1 Hypertension Daughter Breast cancer Mother Thyroid disease Mother Pancreatic cancer Sister Pneumonia Son 2 Allergies Son 3 Relation Status Comments Brother 1 Alive Brother 2 Alive Brother 3 Alive Daughter Alive Father (Age 45) etohism Mother (Age 93) hx of breast c ancer in 50 s Sister (Age 70) pancreatic can cer Son 1 Alive Had [address] ents placed Son 2 Alive Son 3 Alive Social History Tobacco Use Types Packs/Day Years Used Date Smoking Tobacco: Former Cigarettes 0.3 5 0 11/12/1966 - 11/13/1971 Smokeless Tobacco: Never Tobacco Cessation:Counseling Given: Not Answered Alcohol Use Standard Drinks/Week Comments Not Currently [...] on file Sexual Orientation Not on file Last Filed Vital Signs Vital Sign Reading [...] Mass Index 40.14 02/19/2025 11:25 AM EST Plan of Treatment Upcoming Encounters Date Type Department Care Team (Late st Contact Info) Description 03/06/2025 2:45 PM EST Outpatient Surgery [facility] ~[address] [address] Chan Davis MD [address] [place] [address] 03/07/2025 1:00 PM EST Office Visit [facility] in [address] [address] Chan Davis MD [address] [place] [address], [address] [address] 03/14/2025 1:00 PM EST Office Visit [facility] in [address] [address] Chan Davis MD [address] [facility], [address] [place] [address] 04/04/2025 1:00 PM EST Office Visit [facility] in [address] [address] Chan Davis MD [address] [place] [address], [address] [place] [address] 07/28/2025 1:30 PM EDT Office Visit [facility] Internal Medicine [address] [place] [address] Eddie Fernando MD 40 [place] [address] [email or web address] Health Maintenance Due Date Last Done Comments ZOSTER VACCINES (1 of 2) 12/21/2011 10/26/2011 RSV VACCINE (1 - 1-dose 75+ series) 2013 Adult Td,Tdap Booster 08/30/2022 08/30/2012, 002 COVID-19 VACCINE ( season) 2024 01/20/2023, 01/23/2022, 09/01/2021, Additional history exists TSH LEVEL 12/06/2024 12/07/2023, 09/0 03/2020, 03/02/2020, Additional history exists DEPRESSION SCREENING 01/27/2026 01/27/2025, 01/28/20 25 PNEUMOCOCCAL VACCINES (50+ years) Completed 09/26/2017, 05/07/2015, 01/26/2004 OSTEOPOROSIS SCREENING INITIAL (ONE-TIME) Completed 10/27/2021, 08/06/2021, 07/24/2012 INFLUENZA VACCINE Completed 12/06/2024, , 12/22/2022, Additional history exists HEPATITIS A VACCINES Aged Out No long er eligible based on patient's age to complete this topic HIB VACCINES Aged Out No longer eligi ble based on patient's age to complete this topic MENINGOCOCCAL VACCINES (ACWY) Aged Out No longer eligible based on patient's age to complete this topic MENINGOCOCCAL VACCINES (B) Aged Out N o longer eligible based on patient's age to complete this topic Medical Devices Not on file Procedures Procedure Name Priority Date/Time Associated Diagnosis Comments TSH WITH REFLEX Routine 12/07/2023 9:25 AM EDT Acquired hypothyroidism DEXA SCAN Routine 10/27/2021 from Last 3 Months or Most Recently Relevant to Health Maintenance Results * TSH with reflex (12/07/2023 9:25 AM EDT) TSH 1.52 0.27 - 4.20 uIU/mL [facility] Blood 12/07/2023 9:25 AM EDT 12/07/2023 9:27 AM EDT Eddie Fernando MD LAB BLOOD BKR ORDERABLES Shelbie l Result [facility] [address] [place] [address] * DEXA SCAN (10/27/2021) Historical Provider HEALTH MAINTENANCE Edited Result - Final from Last 3 Months or Most Recently Relevant to Health Maintenance Insurance [place] [id number] [employer] MEDEX SUPPLEMENT MEDICARE PART A & B [employer] MEDEX SUPPLEMENT MEDICARE PART A & B [employer] CROSS MEDEX SUPPLEMENT MEDICARE PART A & B [employer] MEDEX SUPPLEMENT MEDICARE PART A & B [email or web address] CROSS MEDEX SUPPLEMENT MEDICARE PART A & B [employer] MEDEX SUPPLEMENT MEDICARE PART A & B [employer] MEDEX SUPPLEMENT ([place]) [address] [place] [address] MEDICARE PART A & B [employer] CROSS MEDEX SUPPLEMENT Member Subscriber Plan / Payer ( fective 2003-Present) Name:Mónica Clayton Relation to Subscriber:Self Name:Mónica Clayton Payer ID:[id number] (NAIC) Type:Indemnity Address: [place] [id number] MEDICARE PART A & B [employer] MEDEX SUPPLEMENT MEDICARE PART A & B [employer] MEDEX SUPPLEMENT MEDICARE PART A & B [employer] MEDEX SUPPLEMENT Care Teams Odd Bundle Worker Relationship Specialty Start Date End Date Eddie Fernando MD [address] [place] [address] [email or web address] PCP - General 02/23/17 Ishaan Das MD [address] [place] [address] [place] [address] Hospitalist 03/02/20 Red Vicente MD [address] [place] [address] Cardiology 03/02/20 Ace Guillen MD [address] [place] [address] [address] [place] [phone] Internal Medicine 03/30/20 Eddie Fernando MD 40 [place] [address] [email or web address] Insurance Assigned Provider 07/01/23 Radha Colon MD [address] [place] [address] 140 [place] [address] [email or web address] 04/21/22 Additional Source Comments The information contained in this document represents components of the legal health record. It is not the complete legal health record.[facility]
--- OUTSIDE RECORDS SUMMARY | 2025-02-21 10:47 | XMS_ITS | Encounter Summary ---
Author Organization [facility] Address [address] [address] Phone Care Team Providers Care Director Of Program Management Name Role Phone Eddie Fernando MD Primary Care Provider [phone] Ishaan Das MD Unavailable [phone] Red Vicente MD Unavailable cAe Guillen MD Unavailable [phone] Eddie Fernando MD Unavailable [phone] Radha Colon MD Unavailable Reason for Visit * Reason Onset Date Comments Pre-op 02/12/2025 Encounter Details Date Type Department Care Team (Late st Contact Info) Description 02/12/2025 Telephone [facility] Internal Medicine [address] [place], [place] [phone] Eddie Fernando MD [address] [place] [address] Pre-op Social History Tobacco Use Types Packs/Day Years [...] as of this encounter Progress Notes * Luis Hubbard - 02/17/2025 7:38 AM EST Office note signed, faxed and scanned into chart * Kay Lutz MA - 02/13/2025 7:57 AM EST Note printed and placed on provider's bin @FD for signature then back to [facility] to fax back to Dr. Davis. * Eddie Fernando MD - 02/12/2025 4:19 PM EST Print it please * Eddie Fernando MD - 02/12/2025 4:17 PM EST Needs it prinetd with pmhx fam hx and soc hx * Tamra Godoy MA - 02/12/2025 3:29 PM EST Ro from Business Agent office called and stated that the office notes that were sent over today need to be signed by provider or at least the 2nd page of the pre op needs to be signed. Surgery Center will not accept this with out a signature. Once this is faxed back to her at [phone] she would like a call so she can grab it off the faxmachine. documented in this encounter Plan of Treatment Upcoming Encounters Date Type Department Care Team (Late st Contact Info) Description 03/06/2025 2:45 PM EST Outpatient Surgery [facility] ~[address] [address] Chan Davis MD [address] [place] [address] 03/07/2025 1:00 PM EST Office Visit [facility] in [address] [address] Chan Davis MD [address] [place] [address] 03/14/2025 1:00 PM EST Office Visit [facility] in [address] [address] Chan Davis MD [address] [place] [address], [address] [address] 04/04/2025 1:00 PM EST Office Visit [facility] in [address] [address] Chan Davis MD [address] [place] [address], [address] [place] [address] 07/28/2025 1:30 PM EDT Office Visit [facility] Internal Medicine [address] [place], [place] [phone] Eddie Fernando MD [address] [place], [place] [phone] [email or web address] documented as of this encounter Visit Diagnoses Not on filedocumented in this encounter Additional Health Concerns Assessment Noted Time PHQ-9 Depression Total Score: 3 01/28/20 25 7:31 AM EST PHQ-2 Depression Total Score: 2 01/28/20 25 7:31 AM EST documented as of this encounter Care Teams Director Of Program Management Relationship Specialty Start Date End Date Eddie Fernando MD [address] [place] [address] PCP - General 02/23/17 Ishaan Das MD [address] [place] [address] Hospitalist 03/02/20 Red Vicente MD [address] [place] [address] Dr [address] [place], [place] [address] Cardiology 03/02/20 Ace Guillen MD [address] [place] [address] Dr [address] [place] [phone] Internal Medicine 03/30/20 Eddie Fernando MD [address] [place] [phone] Insurance Assigned Provider 07/01/23 Radha Colon MD [address] [facility] 140 [place] [phone] [email or web address] 04/21/22 documented as of this encounter Additional Source Comments The information contained in this document represents components of the legal health record. It is not the complete legal health record.[facility]
--- OUTSIDE RECORDS SUMMARY | 2025-02-21 10:47 | XMS_ITS | Clinical Summary ---
Author Organization 175 [facility] Address [address] [place] [address] Phone Care Team Providers Care High Speed Printer Operator Name Role Phone Eddie Fernando MD Primary Care Provider [phone] Allergies Active Allergy Reactions Criticality Noted Date Comments Amlodipine 03/02/2020 Other reaction(s): Other (See Comments) Increased heartburn and gerd Ciprofloxacin Diarrhea 09/26/2017 Ciprofloxacin-Hydrocortisone Diarrhea High 022 Codeine Other High 10/21/2021 Stomahc upset Medications cholecalciferol (VITAMIN D-3) 25 mcg (1,000 unit) tablet Take 1 Tablet by mouth. Active levothyroxine (SYNTHROID, LEVOTHROID) 100 mcg tablet Take 1 Tablet by mouth. 03/17/20 23 Active multivit-min/fe rrous fumarate (MULTI VITAMIN ORAL) Take 1 tablet by mouth 1 (one) time each day. Active peg 400-propylene glycol (Systane, propylene glycoL,) 0.4-0.3 % drops apply 1 Drop to the eye. Active triamcinolone (KENALOG) 0.1 % cream Apply topically. 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 Do not crush or chew. 30 each 09/17/19 25 Active acetaminophen (TYLENOL) 500 mg tablet Take 2 tablets (1,000 mg total) by mouth 3 (three) times a day. 90 tablet 10/23/19 25 Active celecoxib (CeleBREX) 200 mg capsuleIndicati ons:S/P TKR (total knee replacement), left Take 1 capsule (200 mg total) by mouth 2 (two) times a day with meals. 60 each 2 12/27/19 25 Active aspirin 81 mg chewable tablet Chew 1 tablet (81 mg total) 1 (one) time each day. Active ondansetron (ZOFRAN) 8 mg tabletIndicatio ns:Status post total left knee replacement Take 1 tablet (8 mg total) by mouth every 8 (eight) hours if needed for nausea or vomiting. 20 tablet 10/23/19 25 025 Discontinued senna-docusate (PERICOLACE) 8.6-50 mg per tablet Take 2 tablets by mouth at bedtime. 60 tablet 10/23/19 25 025 Discontinued traMADoL (ULTRAM) 50 mg tabletIndicatio ns:S/P TKR (total knee replacement), left Take 1 tablet (50 mg total) by mouth every 6 (six) hours if needed for moderate pain. Max Daily Amount: 200 mg 28 tablet 12/27/19 25 025 Discontinued Active Problems Problem Noted Date Diagnosed Date Closed compression fracture of L1 lumbar vertebr a, sequela 01/23/2025 Lumbar spondylosis 01/23/2025 Status post total knee replacement 10/21/2024 Dyspnea on exertion 09/02/2024 Assessment & Plan (09/02/2024 11:40 AM EDT): The patient has been having symptoms of exertional dyspnea. She has multiple risk factors for CAD including her history of obesity and hypertension. I am concerned that her dyspnea may be her anginal equivalent. As such, patient will need an ischemic evaluation with a stress test. Given the patient's osteoarthritis, she will be unable to complete an exercise protocol. As such, we will proceed with a nuclear stress test to rule out any cardiac ischemia as a cause of her symptoms. Orders: Nuclear stress test with myocardial perfusion; Future Abnormal EKG 09/02/2024 Assessment & Plan (09/02/2024 11:40 AM EDT): The patient was found to have a T wave abnormality in the inferior leads on EKG done today. She also has multiple risk factors for CAD. The patient also has a history of exertional dyspnea. Given the scenario, we will proceed with an ischemic evaluation with a stress test. Given the patient's osteoarthritis, she will be unable to complete an exercise protocol. As such, we will proceed with a nuclear stress test. Orders: Nuclear stress test with myocardial perfusion; Future Murmur 08/26/2024 Assessment & Plan (09/02/2024 11:40 AM EDT): The patient was found to have a murmur on the physical exam. She also has symptoms of dyspnea. Will order an echocardiogram to rule out any underlying significant valvular heart disease. Orders: Transthoracic echocardiogram (TTE) complete with PRN contrast, bubble, strain, and 3D order panel; Future perflutren lipid microsphere (DEFINITY) 1.3 mL in sodium chloride 0.9% 8.7 mL injection Preop cardiovascular exam 08/26/2024 Assessment & Plan (09/02/2024 11:40 AM EDT): The patient is being considered for a left knee replacement surgery. The patient's activities are limited due to her osteoarthritis/left knee discomfort. As such, unable to estimate her functional capacity at this point. The patient's EKG today also showed a nonspecific T wave abnormality in the inferior leads. She also has symptoms of exertional dyspnea. She was also noted to have a murmur on the physical exam. Given the scenario, she will need further cardiac testing prior to the proposed elective orthopedic surgery. Given her exertional dyspnea and murmur on the physical exam, we will proceed with an echocardiogram to rule out any underlying significant valvular heart disease. Given her exertional dyspnea, baseline EKG abnormalities, and risk factors for CAD, we will proceed with a nuclear stress test to rule out any cardiac ischemia. Orders: regadenoson (LEXISCAN) injection 0.4 mg Nuclear stress test with myocardial perfusion; Future Class 3 severe obesity due t o excess calories without serious comorbidity with body mass index (BMI) of 40.0 to 44.9 in adult ([facility] V24, [facility] V28) 01/08/2024 Assessment & Plan (09/02/2024 11:40 AM EDT): Orders: Ambulatory referral to Cardiology Primary osteoarthritis of right knee 08/23/2023 Psoriasis 08/23/2023 Bilateral carpal tunnel syndrome 01/25/2022 Left carpal tunnel syndrome 01/25/2022 Melanoma in situ of face ([facility] V24, [facility] V 28) 01/25/2022 Hypertension 04/09/2020 Assessment & Plan (01/10/2025 10:19 AM EDT): Blood pressure is well-controlled today, continue on metoprolol as prescribed. I have reviewed with the patient the importance of a heart healthy lifestyle which includes eating a low-fat low-salt diet, getting regular exercise, maintaining a healthy weight, not smoking, and following up with routine medical care. Assessment & Plan (09/02/2024 11:40 AM EDT): The patient has a history of arterial hypertension. The patient's blood pressure today was noted to be well controlled. We'll continue the current antihypertensive medication regimen. Orders: Ambulatory referral to Cardiology ECG 12 lead Acquired hypothyroidism 09/26/2017 Chronic venous insufficiency 09/26/2017 Gastroesophageal reflux disease 09/26/2017 Resolved Problems Problem Noted Date Diagnosed Date Resolved Date Primary osteoarthritis of left knee 08/23/2023 11/06/2024 Hyperlipidemia 09/26/2017 08/26/2024 Impaired fasting glucose 09/26/2017 Encounters Date Type Department Care Team Description 01/23/2025 1:00 PM EDT Office Visit Orthopedic Surgery [facility] [address] [place] [id number] Yg Mares MD Status post total left knee replacement (Primary Dx); Post-operative state; Follow-up exam; Closed compression fracture of L1 lumbar vertebra, sequela; Scoliosis of lumbar spine, unspecified scoliosis type; Lumbar spondylosis 01/10/2025 9:40 AM EDT Office Visit 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 (CMS/HCC V24) (Primary Dx); Hypertension, unspecified type; Nonrheumatic aortic valve stenosis 12/26/2024 3:30 PM EDT Office Visit Orth[facility] [address] [phone] Yg Mares MD Status post total left knee replacement (Primary Dx); S/P TKR (total knee replacement), left from Last 3 Months Immunizations Immunization Administration Dates Next Due Pfizer SARS-CoV-2 COVID-19, mRNA, LNP-S, preservative free 05/18/2020,04/27/2020 Surgical History Surgery Date Site/Laterality Comments APPENDECTOMY HERNIA REPAIR CATARACT EXTRACTION Right SKIN CANCER EXCISION TONSILLECTOMY CARPAL TUNNEL RELEASE CARDIAC CATH DONE ON 09/25/2024 AT [facility] INDICATIONS:Shortness of breath. Medical History Medical History Date Comments Essential hypertension DX:Essent ial hypertension Thyroid activity decreased DX:Th yroid activity decreased Melanoma in situ of face (CM S/HCC V24, CMS/HCC V28) 01/25/2022 DX:Melanoma in situ of face (HCC) OA (osteoarthritis) GERD (gastroesophageal reflux disease) Carpal tunnel syndrome, bilateral Acquired hypothyroidism Chronic venous insufficiency Impaired fasting glucose Primary osteoarthritis of right knee Social History Tobacco Use Types Packs/Day Years Used Date Smoking Tobacco: Former Cigarettes 0 Q uit: 03/27/1971 Smokeless Tobacco: Never Tobacco Cessation:Counseling Given: Not Answered Alcohol Use Standard Drinks/Week Comments Not Currently 0 (1 standard drink = 0.6 oz pur e alcohol) Interpersonal Safety Answer Date Record ed Physical Abuse Unrecognized value 10/21/2024 Verbal Abuse Unrecognized value 10/21/2024 Comments No Sex and Gender Information Value Date Recorded Sex Assigned at Not on file Legal Sex Female 7:57 PM EST Gender Identity Not on file Sexual Orientation Not on file Obstetrics History Last Filed Vital Signs Vital Sign Reading Time Taken Comments Blood Pressure 120/64 01/10/2025 9:29 AM EDT Pulse 63 01/10/2025 9:29 AM EDT Temperature 36.5 C (97.7 F) 10/22/2024 2:31 PM EDT Respiratory Rate 18 10/22/2024 2:31 PM EDT Oxygen Saturation 94% 01/10/2025 9:29 AM EDT Inhaled Oxygen Concentration - - Weight 103 kg (227 lb) 01/10/2025 9:29 AM EDT Height 160 cm (5' 3 ) 01/10/2025 9:29 AM EDT Body Mass Index 40.21 01/10/2025 9:29 AM EDT Plan of Treatment Upcoming Encounters Date Type Department Care Team (Late st Contact Info) Description 10/23/2025 1:00 PM EDT Office Visit Orthopedic Surgery - [place] [address] [phone] Yg Mares MD [address] [address] Health Maintenance Due Date Last Done Comments Zoster Vaccines (1 of 2) 12/21/2011 10/26/2011 RSV Immunization Adult Patients (1 - 1-dose 75+ series) 2013 Medicare Annual Wellness Visit 03/06/2022 Osteoporosis Screening (Bone Density Screening) 03/06/2022 Social Influencers of Health Screening 03/06/2022 DTaP,Tdap,and Td Vaccines (3 - Td or Tdap) 08/30/2022 08/30/2012, 06/25/2001 Depression Screening 03/27/2024 COVID-19 Vaccine ( season) 2024 01/20/2023, 01/23/2022, 09/01/2021, Additional history exists Falls Risk Assessment 10/22/2025 10/22/2024 Hypertension/CHF/CAD Annual BMP Blood Test 10/22/2025 10/22/2024, 07/26/2024, 12/07/2023, Additional history exists Cholesterol Screening (Lipid Panel) 11/25/2025 11/25/2020 Pneumococcal Vaccine: 50+ Years Completed 09/26/2017, 05/07/2015, 01/26/2004 Influenza Vaccine Completed 12/06/2024, , 12/22/2022, Additional history exists HIB Vaccines Aged Out No longer eligi ble based on patient's age to complete this topic HPV Vaccines Aged Out No longer eligi ble based on patient's age to complete this topic Hepatitis A Vaccines Aged Out No long er eligible based on patient's age to complete this topic Hepatitis B Vaccines Aged Out No long er eligible based on patient's age to complete this topic IPV Vaccines Aged Out No longer eligi ble based on patient's age to complete this topic MMR Vaccines Aged Out No longer eligi ble based on patient's age to complete this topic Meningococcal ACWY Vaccine Aged Out N o longer eligible based on patient's age to complete this topic Meningococcal B Vaccine Aged Out No l onger eligible based on patient's age to complete this topic RSV Immunization Patients Under 20 months Aged Out No longer eligible based on patient's age to complete this topic Varicella Vaccines Aged Out No longer eligible based on patient's age to complete this topic Medical Devices Implanted Type Area Educational Adviser Device Identifier Shelf Expiration Date Model / Serial / Lot Cement Bone Simplex Full Dose - Sn/A - [id number] Implanted:Qty: 2 on 10/21/2024 by Yg Mares MD at [facility] Bone Cement Left: Knee [employer] 02/23/2027 [id number] / N/A / [id number] All Poly Pat Ve 32 Mm Nella - Sn/A - [id number] Implanted:Qty: 1 on 10/21/2024 by Yg Mares MD at [facility] Joints Knee Left: Knee [employer] [id number] 05/23/2029 [id number] / N/A / [id number] Knee Psn Tib Business Technology Architect Stm 5 Deg Sz El - Sn/A - [id number] Implanted:Qty: 1 on 10/21/2024 by Yg Mares MD at [facility] Joints Knee Left: Knee [employer] [id number] 07/23/2034 [id number] / N/A / [id number] Knee Psn Fem Ps Cmt Ccr Std Sz8 L - Sn/A - [id number] Implanted:Qty: 1 on 10/21/2024 by Yg Mares MD at [facility] Joints Knee Left: Knee [employer] [id number] 01/02/2034 [id number] / N/A / [id number] Stem Extension Tapered Cemented 79a00ie - Sn/A - [id number] Implanted:Qty: 1 on 10/21/2024 by Yg Mares MD at [facility] Joints Knee Left: Knee [employer] [id number] 08/03/2034 [id number] / N/A / [id number] Knee Cps Artcsurf 10mm Lt 6-9 Ef - Sn/A - [id number] Implanted:Qty: 1 on 10/21/2024 by Yg Mares MD at [facility] Joints Knee Left: Knee [employer] [id number] 05/16/2029 [id number] / N/A / [id number] Chicho Femur/Chicho Tibia/Cps Ve Art Surf/Ve Patell Implanted:Qty: 1 on 10/21/2024 by Yg Mares MD at [facility] Left: Knee [employer] [id number] / N/A / N/A Procedures Procedure Name Priority Date/Time Associated Diagnosis Comments XR LUMBAR SPINE 2-3 VIEWS Routine 01/23/2025 12:58 PM EDT Follow-up exam Closed compression fracture of L1 lumbar vertebra, sequela Scoliosis of lumbar spine, unspecified scoliosis type Lumbar spondylosis XR KNEE 3 VIEWS LEFT Routine 01/23/2025 12:58 PM EDT Post-operative state Status post total left knee replacement BASIC METABOLIC PANEL Routine 10/22/2024 6:08 AM EDT LIPID PANEL Routine 11/25/2020 from Last 3 Months or Most Recently Relevant to Health Maintenance Results * XR Lumbar Spine 2-3 Views (01/23/2025 12:58 PM EDT) Anatomical Region Laterality Modality Spine, L-spine Computed Radiogr aphy Narrative 01/24/2025 11:55 AM EDT AP and lateral lumbar spine x-rays were obtained today. These do show chronic appearing anterior wedge compression fracture involving L1 with 30% loss of height. Grade 1 anterolisthesis L4/L5. Lumbar spondylosis involving L1-S1. Small 5 degree left-sided degenerative lumbar spondylosis. No significant degenerative changes involving partially imaged superior hip joints. Significant calcification of the aorta. Yg Mares MD IMG XR PROCEDURES Fin al Result * XR Knee 3 Views Left (01/23/2025 12:58 PM EDT) Anatomical Region Laterality Modality Lower Extremities, Knee Left Computed Radiography Narrative 01/24/2025 11:54 AM EDT 3 views of the left knee obtained today including AP, lateral, sunrise were reviewed. These show left cemented posterior stabilized total knee replacement with patellar resurfacing and short cemented tibial stem. Implants appear well-fixed and well-positioned. No progressive or circumferential radiolucencies. Patella tracking centrally without tilt. Yg Mares MD IMG XR PROCEDURES Fin al Result * (ABNORMAL) Basic metabolic panel (10/22/2024 6:08 AM EDT) [facility] Signature Sodium 138 133 - 145 mmol/L LAB CHEMISTRY METHOD 10/22/2024 8:29 AM EDT [facility] Potassium 4.3 3.5 - 5.5 mmol/L LAB CHEMISTRY METHOD 10/22/2024 8:29 AM [facility] Chloride 104 96 - 110 mmol/L LAB CHEMISTRY METHOD 10/22/2024 8:29 AM [facility] CO2 29 21 - 32 mmol/L LAB CHEMISTRY METHOD 10/22/2024 8:29 AM [facility] Anion Gap 5 3 - 11 LAB CHEMISTRY METHOD 10/22/2024 8:29 AM [facility] Glucose 141(H) 70 - 100 mg/dL LAB CHEMISTRY METHOD 10/22/2024 8:29 AM [facility] BUN 14 5 - 25 mg/dL LAB CHEMISTRY METHOD 10/22/2024 8:29 AM [facility] Creatinine 0.84 0.50 - 1.10 mg/dL LAB CHEMISTRY METHOD 10/22/2024 8:29 AM [facility] eGFR 68 >=60 mL/min/1. 73m2 LAB CHEMISTRY METHOD 10/22/2024 8:29 AM [facility] Comment:Calculation based on the Chronic Kidney Disease Epidemiology Collaboration (CKD-EPI) equation refit without adjustment for race. BUN/Creatinine Ratio 16.7 LAB CHEMISTRY METHOD 10/22/2024 8:29 AM [facility] Calcium 8.7 8.5 - 10.5 mg/dL LAB CHEMISTRY METHOD 10/22/2024 8:29 AM [facility] Blood Venous blood specimen / Unknown Venipuncture / Unknown 10/22/2024 6:08 AM EDT 10/22/2024 6:58 AM EDT us Judit FRANCOIS LAB BLOOD ORDERABLES Final R esult [facility] [address] [place] [address], * Lipid panel (11/25/2020) Triglycerides 0 mg/dL Comment:no interpretation, a bstracted Cholesterol 0 mg/dL Comment:no interpretation, a bstracted HDL 0 mg/dL Comment:no interpretation, a bstracted LDL Cholesterol 0 mg/dL Comment:no interpretation, a bstracted Blood Venous blood specimen / Unknown us Historical Provider LAB BLOOD ORDERABLES Shelbie l Result from Last 3 Months or Most Recently Relevant to Health Maintenance Insurance MEDICARE [facility] Advance Directives * Full Code - Default (Latest Code Status on File) Date Activated Date Inactivated Comments 10/21/2024 12:13 PM 10/22/2024 6:27 PM This is ord er is used when code status has not been discussed with the patient, or code status is otherwise unknown/unconfirmed To update the patient's code status, place a code status order. Do not modify or discontinue any currently active code status orders. Care Teams High Speed Printer Operator Relationship Specialty Start Date End Date Eddie Fernando MD [address] [place] [address] (work) PCP - General 08/07/23
[2025-02-21 10:58] LABS: MANUAL DIFF FLAG NO
[2025-02-21 11:13] LABS: Appearance Urine Clear; Glucose Urine UA Negative (Negative); PH 5.5 (5.0-9.0); Specific Gravity - Urine 1.025 (1.005-1.025); UMIC TRIGGER UA YES
[2025-02-21 11:18] LABS: Hematocrit 39.3 % (37.0-47.0); Hemoglobin 12.5 g/dl (12.0-16.0); Imm Gran Abs Auto 0.01 X10*3/uL (0.00-0.03); Imm Gran Pct Auto 0.2 % (0.0-0.4); Lymphocytes Absolute Auto 1.5 X10*3/uL (1.2-4.9); Mean Corpuscular HGB Conc 31.8 g/dl (31.0-35.0); Mean Corpuscular Hemoglobin 27.7 pg (27.0-33.0); Mean Corpuscular Volume 86.9 fL (80.0-98.0); NRBC Abs Auto 0.000 X10*3/uL (0.0-0.012); NRBC Pct Auto 0.0 /100WBC (0.0-0.2); Platelet Count 262 X10*3/uL (160-400); Red Blood Count 4.52 X10*6/uL (4.20-5.50); White Blood Count 6.4 X10*3/uL (4.8-10.8)
[2025-02-21 11:35] LABS: Cholesterol 154 mg/dL (<200); HDL Cholesterol 63 mg/dL (>40); Triglycerides 74 mg/dL (<150)
[2025-02-21 11:40] LABS: Alanine Aminotransferase 14 U/L (0-31); Albumin Level 4.6 g/dL (3.5-5.0); Alkaline Phosphatase 67 U/L (39-117); Anion Gap 15 (12-20); Aspartate Amino Transferase 21 U/L (5-31); Blood Urea Nitrogen 13 mg/dL (9-16); Calcium 9.4 mg/dL (8.4-10.2); Carbon Dioxide 26 mmol/L (22-29); Chloride 105 mmol/L (96-108); Cholesterol 151 mg/dL (<200); Estimated Glomerular Filt Rate > 60; HDL Cholesterol 63 mg/dL (>40); Potassium 4.2 mmol/L (3.3-5.1); Sodium 142 mmol/L (135-145); Total Protein 7.5 g/dL (6.5-8.0); Triglycerides 73 mg/dL (<150)
[2025-02-21 13:23] LABS: Reflex LDLD? No
== END 2025-02-21 10:43 | disposition home or self-care (01) ==
LOC: HO.LAB 10:42
PROVIDERS: PCP Internal Medicine
DX: K21.9 Gastro-esophageal reflux disease without esophagitis (principal); I10 Essential (primary) hypertension; R73.01 Impaired fasting glucose; M25.551 Pain in right hip; E03.9 Hypothyroidism, unspecified; I25.119 Atherosclerotic heart disease of native coronary artery with unspecified angina pectoris
CPT/HCPCS: 36415; 73502; 80053; 80061; 81001; 83036; 84443; 85025

== ENCOUNTER → 2025-02-21 11:11 | Outpatient (BNV) | payer MEDICARE, SELFPAY | PROVIDERS: PCP Internal Medicine; Visit Provider Radiology Diagnostic Radiology | DX: M16.11 Unilateral primary osteoarthritis, right hip (principal); M76.9 Unspecified enthesopathy, lower limb, excluding foot | CPT/HCPCS: 73502 ==